=== PATIENT | female | born 1955 | race Caucasian/White ===

== ENCOUNTER 2019-05-07 08:07 | Outpatient (CLI) | payer MEDICARE, OTHER, SELFPAY ==
--- NOTE | 2019-05-07 09:09 | XR_ITS ---
WS: [id number] ABDOMEN KUB CLINICAL INFORMATION: Renal/ureteral calculi. COMPARISON: November 06, 2018 FINDINGS: Bowel gas partially obscures renal parenchyma. Lumbar scoliosis convex right. Pelvic phleboliths. No definite visualized staghorn calculus today. No visualized renal parenchymal or ureteral calculi. Mod erate spondylitic changes lumbar spine. XR/XR KUB [id number] Impression: No definite visualized renal or ureteral calculi today.
== END 2019-05-07 08:08 | disposition home or self-care (01) ==
LOC: RAD 08:13 → RADWPI 08:53
PROVIDERS: PCP Nurse Practitioner Family; Visit Provider Urology
DX: N20.0 Calculus of kidney (principal)
CPT/HCPCS: 74018; 81001

== ENCOUNTER 2019-11-19 14:13 | Outpatient (CLI) | payer MEDICARE, OTHER, SELFPAY ==
--- NOTE | 2019-11-19 14:25 | XRR_ITS ---
PROCEDURE INFORMATION: Exam: XR Abdomen, 1 View Exam date and time: 11/19/2019 2:54 PM Age: 64 years old Clinical indication: Condition or disease; Other: Stones TECHNIQUE: Imaging protocol: XR of the abdomen. Views: Frontal supine view of the abdomen. 1 View. COMPARISON: CR XR KUB [id number] 05/07/2019 9:14 AM FINDINGS: Gastrointestinal tract: Prominent stool, with paucity of intra-abdominal bowel gas. Intraperitoneal space: Incomplete visualization of the superior and lateral abdomen. Vasculature: Subcentimeter pelvic calcifications, the majority of which are presumably vascular in etiology. If urolithiasis is of clinical concern, CT may be of benefit for further evaluation. Bones/joints: Scoliosis and degenerative change. Other findings: Brassiere artifact. XR/XR KUB [id number] IMPRESSION: Subcentimeter pelvic calcifications, the majority of which are presumably vascular in etiology. If urolithiasis is of clinical concern, CT may be of benefit for further evaluation.
== END 2019-11-19 14:14 | disposition home or self-care (01) ==
LOC: RAD 14:18
PROVIDERS: PCP Nurse Practitioner Family; Visit Provider Nurse Practitioner Family
DX: N20.0 Calculus of kidney (principal)
CPT/HCPCS: 74018; 80053; 81001

== ENCOUNTER 2019-11-27 08:56 | Outpatient (CLI) | payer MEDICARE, OTHER, SELFPAY ==
--- NOTE | 2019-11-27 09:15 | XRR_ITS ---
PROCEDURE INFORMATION: Exam: XR Abdomen, 1 View Exam date and time: 11/27/2019 9:00 AM Age: 64 years old Clinical indication: Condition or disease; Kidney or ureter condition; Calculus (stone) in kidney; Prior surgery; Surgery type: Cysto; Additional info: Kidney stone TECHNIQUE: Imaging protocol: XR of the abdomen. Views: Frontal supine view of the abdomen. 1 View. COMPARISON: CR XR KUB [id number] 11/19/2019 2:48 PM FINDINGS: Gastrointestinal tract: Normal. No bowel dilation. Vasculature: Multiple stable calcifications are present in the lower pelvis consistent with multiple phleboliths. No calcifications are seen in the projection of the kidneys. Bones/joints: There is chronic DJD and moderate scoliosis in the lumbar spine. XR/XR KUB 54515 IMPRESSION: 1. No acute abnormality. 2. Small calcifications in the pelvis are most likely phleboliths. No definite renal calcifications are identified.
== END 2019-11-27 08:57 | disposition home or self-care (01) ==
LOC: RAD 08:58
PROVIDERS: PCP Nurse Practitioner Family; Visit Provider Nurse Practitioner Family
DX: N20.0 Calculus of kidney (principal)
CPT/HCPCS: 74018; 81003; 82365; 88300

== ENCOUNTER 2020-04-08 12:50 | Outpatient (CLI) | payer MEDICARE, SELFPAY ==
--- NOTE | 2020-04-08 12:56 | MM_ITS ---
WS: [id number] BILATERAL SCREENING DIGITAL MAMMOGRAM WITH CAD HISTORY: SCREENING COMPARISON: 08/18/2018 Bilateral CC and MLO views submitted. Computer aided detection analyzed. Breast composition: There are scattered areas of fibroglandular density. No suspicious masses, microc alcifications or architectural distortion. Scattered calcifications in each breast. MM/[place] [id number] IMPRESSION: BI-RADS: 2-Benign FOLLOW UP: 1 Year Follow-up
== END 2020-04-08 12:51 | disposition home or self-care (01) ==
LOC: RADSHAW 12:55
PROVIDERS: PCP Nurse Practitioner Family; Visit Provider Nurse Practitioner Family
DX: Z12.31 Encounter for screening mammogram for malignant neoplasm of breast (principal)
CPT/HCPCS: 77067

== ENCOUNTER → 2020-04-11 10:50 | Outpatient (BNVA) | payer MEDICARE, OTHER, SELFPAY | PROVIDERS: PCP Nurse Practitioner Family; Visit Provider Surgery | DX: Z12.11 Encounter for screening for malignant neoplasm of colon (principal) | CPT/HCPCS: 87635 ==

== ENCOUNTER 2020-04-16 06:38 | Day surgery (SDC) | payer MEDICARE, OTHER, SELFPAY ==
[2020-04-14 10:00] VITALS: BMI 37.3
[2020-04-16 06:52] VITALS: BP 126/75; PULSE 73; RESP 18; TEMP 36.6; O2SAT 97
--- NOTE | 2020-04-16 07:00 | ANES.PREANE2 ---
Pre-Anesthetic Assessment Pre-Anesthetic Assessment: Height/Weight: Height 1.68 m Weight 104.78 kg Temp Pulse Resp BP Pulse Ox 97.8 F 73 18 126/75 97 04/16/20 06:52 04/16/20 06:52 04/16/20 06:52 04/16/20 06:52 04/16/20 06:52 Preop Diagnosis: Screening colonoscopy Proposed Procedure: Operation Date: 04/16/20 07:30 Proposed Procedures p Colonoscopy 96286 Z12.11(Not Applicable) - Seth Winkler MD Last intake: Intake Last Liquid Date 04/15/20 Last Liquid Time 22:30 Last Solid Date 04/14/20 Last Solid Time 18:00 Social: Social History: No alcohol and No tobacco Exam: Pre-Anes Outpt Exam: alert, oriented x 3, clear to auscultation bilaterally and regular rate & rhythm Airway: Submandibular: WNL Cervical ROM: WNL MP: 3 Pulmonary: Pulmonary: None reported CV/HEM: CV/HEM: HTN : : None reported Comments: hx staghorn Hepatic: Hepatic: None reported GI: GI: None reported Metabolic: Metabolic: DM and Morbid obesity Musc/skel: Musc/skel: None reported PFSH Anesthesia PFSH: Medical History Acute cystitis without hematuria Mixed stress and urge urinary incontinence Staghorn calculus Urolithiasis Surgical History H/O tubal ligation History of removal of calculus of renal pelvis through percutaneous nephrostomy Family History Father Myocardial infarction acute Mother Dementia Social History Smoking and tobacco status: never smoked Alcohol intake: never Marital status: Current occupational status: retired History of recent travel: No Data Anesthesia Cardiac Studies: No Data to Display
[2020-04-16] MEDS: sodium chloride 0.9% 1,000 ML 30 ML IV (07:03)
[2020-04-16 07:06] LABS: Glucose Point of Care 109 mg/dL (70-110)
--- NOTE | 2020-04-16 07:10 | W.PM.OPSFHP ---
Same Day Surgery H&P Indication for Procedure/HPI DATE OF PROCEDURE: April 16, 2020 CHIEF COMPLAINT/INDICATIONFOR SURGICAL PROCEDURE: Screening colonoscopy PREOP DIAGNOSIS: Screening colonoscopy PLANNED PROCEDRUE: Operation Date: 04/16/20 07:30 Proposed Procedures p Colonoscopy 42058 Z12.11(Not Applicable) - Seth Winkler MD This is a pleasant 65 years old female patient presents to my practice for screening colonoscopy as she never had one before. Patient denies any weight loss or history of colon cancer. She reports some intermittent bleeding with history of hemorrhoids. ROS All systems have been reviewed negative except as per the above or per problem list. Medications/Allergies* Home Medications Medication Instructions Recorded Confirmed Type lisinopril 20 mg tablet 30 mg PO DAILY 05/07/19 04/14/20 History metformin 500 mg tablet 500 mg PO DAILY 05/07/19 04/14/20 History simvastatin 10 mg tablet 10 mg PO DAILY 05/07/19 04/14/20 History trazodone 50 mg tablet 50 mg PO DAILY 11/19/19 04/14/20 History Allergies/Adverse Reactions Allergy/AdvReac Type Severity Reaction Status Date / Time No Known Allergies Allergy Unverified 04/16/20 07:10 Current Medications: Generic Name Dose Route Start Last Admin Trade Name Freq PRN Reason Stop Dose Admin Sodium Chloride 1,000 mls @ 30 mls/hr 04/16/20 06:45 04/16/20 07:03 Sodium Chloride 0.9% IV 04/17/20 06:44 30 mls/hr .Q24H CAMELIA Administration Pertinent History/Comorbid Conditions* Medical History (Updated 11/19/19 @ 13:51 by Jen Arias APRN) Acute cystitis without hematuria Mixed stress and urge urinary incontinence Staghorn calculus Urolithiasis Surgical History (Updated 05/07/19 @ 09:54 by Jorge L Murphy MD) H/O tubal ligation History of removal of calculus of renal pelvis through percutaneous nephrostomy Family History (Updated 04/27/19 @ 14:57 by Malia Lyle LPN) Father Myocardial infarction acute Father Dementia Mother Social History Smoking and tobacco status: never smoked Alcohol intake: never Marital status: Current occupational status: retired History of recent travel: No Pertinent Exam Findings alert, oriented x 3, clear to auscultation bilaterally, regular rate & rhythm and procedure specific exam findings (Abdominal examination nontender nondistended soft, obese with a BMI of 37) Recommendations Surgery/Procedure today (Colonoscopy with possible biopsy) Other Plans: Plan of care; After thorough history and physical examination and reviewing the chart, plan to perform screening colonoscopy. I discussed with the patient in details the risks,benefits,alternatives and indications.The risk of aspiration, bleeding, soft tissue injury, perforation of the colon and other potential concomitant complications were explained to the patient in details,also the potential need for Laproscoy/Laparotomy to repair any related complications including but not limited to colectomy and or Closotomy.The patient understood this well and did agree to proceed. Rationale was carefully and clearly discussed with the patient.Appropriate informed consent have been reviewed and signed All questions have been answered and all concerns have been addressed to patient's satisfaction. Verbal and written Instructions were given to the patient for colonoscopy prep Coding Level of Care Code Acute Energy Control Officer for [place]
[2020-04-16 07:46] VITALS: BP 86/49; PULSE 61; RESP 20; TEMP 36.2; O2SAT 96
[2020-04-16 07:54] VITALS: BP 104/63; PULSE 62; RESP 18; TEMP 36.4; O2SAT 98
[2020-04-16 08:05] VITALS: BP 118/68; PULSE 66; RESP 18; TEMP 36.4; O2SAT 98
--- NOTE | 2020-04-16 14:30 | ANE.PACU2 ---
Inpatient post-anesthesia follow up: Airway intact: Yes Vital signs: Temperature 97.5 F Pulse Rate 66 Respiratory Rate 18 Blood Pressure 118/68 Pulse Oximetry 98 Oxygen Delivery Me thod Room Air Oxygen Flow Rate 3 Fraction of Inspir ed Oxygen Hydration adequate: Yes Nausea and vomiting: No Pain level: 1 Mental status: Baseline
== END 2020-04-16 08:15 | disposition home or self-care (01) ==
PROVIDERS: PCP Nurse Practitioner Family; Visit Provider Surgery
PROC: 0DJD8ZZ Inspection of Lower Intestinal Tract, Via Natural or Artificial Opening Endoscopic (ICD-10-PCS; CPT 45378; principal; 2020-04-16 07:30)
DX: Z12.11 Encounter for screening for malignant neoplasm of colon (principal); D12.5 Benign neoplasm of sigmoid colon; K57.30 Diverticulosis of large intestine without perforation or abscess without bleeding; I10 Essential (primary) hypertension; E11.9 Type 2 diabetes mellitus without complications; E66.01 Morbid (severe) obesity due to excess calories; Z68.37 Body mass index [BMI] 37.0-37.9, adult
CPT/HCPCS: 36416; 45385; 82962; 88305; 96360; J2704; J7030

== ENCOUNTER 2020-08-05 07:35 | Outpatient (CLI) | payer MEDICARE, SELFPAY ==
--- NOTE | 2020-08-05 07:30 | XRR_ITS ---
PROCEDURE INFORMATION: Exam: XR Abdomen Exam date and time: 08/05/2020 7:30 AM Age: 65 years old Clinical indication: Condition or disease; Kidney or ureter condition; Calculus (stone) in kidney; Prior surgery; Surgery type: Kidney stone; Additional info: Stone, kub at [facility] on 05/06/20 at 0715 with appt to follow at 0815. TECHNIQUE: Imaging protocol: XR of the abdomen. Views: Frontal supine view of the abdomen. 1 View. COMPARISON: CR XR KUB [id number] 11/27/2019 9:04 AM FINDINGS: Gastrointestinal tract: Bowel gas pattern is nonspecific. No mass effect upon the bowel loops. Distal rectal gas. Scattered loops of air filled small bowel none of which are dilated. Bones/joints: No acute process within the osseous structures of the spine or pelvis. Other findings: No appreciable calcifications XR/XR KUB [id number] IMPRESSION: Bowel gas pattern is nonspecific.
== END 2020-08-05 07:36 | disposition home or self-care (01) ==
PROVIDERS: PCP Nurse Practitioner Family; Visit Provider Urology
DX: N20.0 Calculus of kidney (principal)
CPT/HCPCS: 74018; 81003; 87077; 87086; 87184

== ENCOUNTER 2021-02-04 07:24 | Outpatient (CLI) | payer MEDICARE, SELFPAY ==
--- NOTE | 2021-02-04 07:15 | XR_ITS ---
WS: [id number] KUB, AP view, 02/04/2021 Clinical Data: UROLITH IAS Comparison: KUB, 08/05/2020. Findings: No abnormal intraabdominal masses or calcifications are seen. There is no dilatated small bowel or ev idence of obstruction. There is a dextroscoliosis with osteoarthritis of the lumbar spine. There is a large amount of fecal material throughout the colon. There are phleboliths in the true pelvis. XR/XR KUB 27712 Impression: Negative KUB.
== END 2021-02-04 07:25 | disposition home or self-care (01) ==
LOC: RAD 07:27
PROVIDERS: PCP Nurse Practitioner Family; Visit Provider Urology
DX: N20.0 Calculus of kidney (principal)
CPT/HCPCS: 74018; 81003; 87086

== ENCOUNTER → 2021-03-24 08:56 | Outpatient (BNVA) | payer MEDICARE, SELFPAY | PROVIDERS: PCP Nurse Practitioner Family; Visit Provider Urology | DX: N30.20 Other chronic cystitis without hematuria (principal) | CPT/HCPCS: 81003 ==

== ENCOUNTER → 2021-07-23 12:35 | Outpatient (BNVA) | payer MEDICARE, SELFPAY | PROVIDERS: PCP Nurse Practitioner Family; Visit Provider Urology | DX: N30.20 Other chronic cystitis without hematuria (principal); N39.46 Mixed incontinence; N20.0 Calculus of kidney | CPT/HCPCS: 51798; 81003; 99213 ==

== ENCOUNTER 2022-03-31 08:24 | Outpatient (CLI) | payer MEDICARE, SELFPAY ==
--- NOTE | 2022-03-31 08:34 | MM_ITS ---
WS: [id number] VIEWS: MLO and CC views both breasts. 3D digital tomosynthesis is also included in this exam. Comparison made with prior exam of 08/18/2018, 04/08/2020.. Findings: There was no sign of mass, architectural distortion or suspicious calcification in either breast. Sc attered fibroglandular densities MM/[place] [id number] Impression: BI-RADS: 2-Benign FOLLOW-UP: 1 Year Follow-up This mammogram was also analyzed by the Computer Aided Detection System R2 Imag e City Clerk.
== END 2022-03-31 08:25 | disposition home or self-care (01) ==
LOC: RAD 08:30
PROVIDERS: PCP Nurse Practitioner Family; Visit Provider Nurse Practitioner Family
DX: Z12.31 Encounter for screening mammogram for malignant neoplasm of breast (principal)
CPT/HCPCS: 77063; 77067

== ENCOUNTER 2022-10-13 13:46 | Outpatient (CLI) | payer MEDICARE, SELFPAY ==
--- NOTE | 2022-10-13 14:41 | XR_ITS ---
WS: [id number] Right ankle, 3 views, 10/13/2022 Clinical Data: RIGHT ANKLE PAIN Comparison: None. Findings: No fractures or dislocations are seen. The ankle mortise is normal. The talus and calcaneus are unrem arkable. No soft tissue swelling over the medial or lateral malleolus is seen. There is a plantar spur and an Achilles spur. Impression: Negative right ankle.
== END 2022-10-13 13:47 | disposition home or self-care (01) ==
LOC: RAD 14:30
PROVIDERS: PCP Nurse Practitioner Family; Visit Provider Nurse Practitioner Family
DX: M25.571 Pain in right ankle and joints of right foot (principal)
CPT/HCPCS: 73610

== ENCOUNTER 2022-11-26 11:51 | Inpatient (IN) | payer MEDICARE, SELFPAY ==
[2022-11-26] VITALS (9 sets, daily range): BP systolic 122–154; BP diastolic 81–110; PULSE 112–160; RESP 15–21; TEMP 36.6–37.1; O2SAT 96–98; BMI 38.7
--- NOTE | 2022-11-26 11:56 | ECG_ITS ---
[facility] Test Date: 2022-11-26 Pat Name: Alanna Rothman Department: Room: 106 Gender: Female International Student Counselor: : 1955 Requested By: Ney Douglass Order Number: [id number] Amaury MD: Lino Randall M.D. Measurements Intervals [place] Rate: 150 P: 0 NC: 0 QRS: 37 QRSD: 87 T: 49 QT: 271 QTc: 429 Interpretive Statements ATRIAL FIBRILLATION WITH RAPID VENTRICULAR RESPONSE ST DEPRESSION, CONSIDER SUBENDOCARDIAL INJURY [0.1+ mV ST DEPRESSION] No previous ECG available for comparison Electronically Signed On 11-26-2022 15:27:04 CDT by Lino Randall M.D. [id number]
--- NOTE | 2022-11-26 12:02 | XR_ITS ---
WS: [id number] Portable AP upright chest, 11/26/2022 Clinical Data: dyspnea/cough Comparison: None. Findings: No nodules, masses or effusions are seen. The heart is normal. The pulmonary vascularity is not increased. No pneumonia or pneumothorax is seen. The aortic arch shows mild tortuosity. There ar e monitor leads on the chest wall. Impression: Atherosclerosis.
--- NOTE | 2022-11-26 12:03 | ED_ITS ---
HPI - Arrhythmia/Palpitations General: Chief Complaint: Chest Pain Stated Complaint: chest pain, high bp, fast heartrate Time Seen by Provider: 11/26/22 11:59 Source: patient Mode of arrival: ambulatory History of Present Illness: 67-year-old female presents emergency room complaining of palpitation and racing heart rate. She was at physical therapy swelling and noted her heart rate was elevated she was directed to the emergency room on arrival here she is hypertensive with sustained A-fib with RVR on initial EKG. She has some mild chest discomfort earlier is mostly improved. Denies any radiation of pain into her extremities. MD complaint: rapid heart beat and heart racing Onset (ago): hour(s) Duration: constant Severity: moderate Context: occurred during rest Associated symptoms: Deny anxiety, cough, diaphoresis, muscle cramps, nausea, paresthesias, pre-syncope, sense of impending doom, short of breath, syncope or vomiting Review of Systems Const: Denies: fever(s), chills or diaphoresis Card: Reports: palpitations and irregular heart rhythm; Denies: chest pain, syncope or pre-syncope Resp: Denies: dyspnea GI: Denies: abdominal pain, nausea or vomiting : Denies: dysuria, urinary frequency or urinary urgency Musc: Denies: muscle cramps Skin/Breast: Denies: rash Psych: Denies: anxiety PFSH ED PFSH: Medical History Acute cystitis without hematuria Chronic cystitis Colon polyp Conjunctivitis Diabetes mellitus Diverticulosis HTN (hypertension) Hyperlipidemia Mixed stress and urge urinary incontinence Staghorn calculus URI with cough and congestion Urolithiasis Surgical History H/O tubal ligation History of removal of calculus of renal pelvis through percutaneous nephrostomy Family History Father , at age 52 Myocardial infarction acute Mother Dementia Social History Smoking and tobacco/nicotine status: never used tobacco/nicotine Alcohol intake: never Substance/Drug Use: never Marital status: / Current occupational status: retired Physical Exam Const: GENERAL APPEARANCE: cooperative and comfortable ORIENTATION/CONSCIOUSNESS: Yes awake, Yes oriented to person, Yes oriented to place and Yes oriented to time HENMT: COMMON NORMALS: normocephalic, atraumatic and hearing grossly normal bilaterally HEAD & SCALP: normocephalic and atraumatic Resp: COMMON NORMALS: normal respiratory effort, No retractions, No use of accessory muscles and clear to auscultation bilaterally AUSCULTATION: clear to auscultation bilaterally Cardio: COMMON NORMALS: No murmurs present (Cardio) RATE: tachycardic RHYTHM: abnormal rhythm irregularly irregular GI: COMMON NORMALS: Soft to palpation and No hepatosplenomegaly present AUSCULTATION: Yes normoactive bowel sounds PALPATION: Yes Soft to palpation, No Tenderness to palpation present (GI), No Guarding due to palpation present (GI) and Yes No hepatosplenomegaly present Extremity: COMMON NORMALS: normal to inspection, capillary refill normal, no clubbing, cyanosis or edema, no calf tenderness and no pedal edema Neuro: SENSORIUM/ORIENTATION: Yes oriented to person, Yes oriented to place a nd Yes oriented to time Skin: COMMON NORMALS: no rashes or lesions noted GENERAL SKIN EXAM: no rashes or lesions noted Course Vital Signs: Vital signs: Vital Signs Temperature 97.9 F 11/29/22 13:51 Pulse Rate 61 11/29/22 14:00 Respiratory Rate 15 11/29/22 13:51 Blood Pressure 155/66 11/29/22 13:51 Pulse Oximetry 96 11/29/22 13:51 Oxygen Delivery Me thod Room Air 11/29/22 11:21 MDM - Arrhythmia/Palpitations Medical Decision Making Initially started on Cardizem however patient did not respond she was switched to amiodarone and rate began to improve. She will be admitted to the hospital discussed with hospitalist. Dr. Alicia will see the patient orders written. Differential Diagnosis Likely palpitations, artial fibrillation and artial flutter Medical Records I reviewed the patient's medical records. Lab Data I reviewed the patient's lab results. 11/29/22 03:30 11/29/22 03:30 Laboratory Results WBC 4.98 10^3/uL (3.29-11.43) 11/26/22 12:08 RBC 4.69 10^6/uL (3.85-5.65) 11/26/22 12:08 Hgb 14.10 g/dL (11.27-16.99) 11/26/22 12:08 Hct 42.1 % (36-47) 11/26/22 12:08 MCV 89.8 fl (85-98) 11/26/22 12:08 MCH 30.1 pg (27-33) 11/26/22 12:08 MCHC 33.5 g/dL (30-55) 11/26/22 12:08 RDW 13.0 % (12.1-15.1) 11/26/22 12:08 Plt Count 237 10^3/cmm (157-399) 11/26/22 12:08 MPV 9.2 fL (7.4-10.4) 11/26/22 12:08 Neut % (Auto) 46.2 % 11/26/22 12:08 Lymph % (Auto) 33.7 % 11/26/22 12:08 [place] % (Auto) 13.1 % 11/26/22 12:08 Eos % (Auto) 5.4 % 11/26/22 12:08 Baso % (Auto) 1.2 % 11/26/22 12:08 Neut # (Auto) 2.30 10^3/uL (1.8-7.7) 11/26/22 12:08 Lymph # (Auto) 1.7 10^3/uL (0.8-4.8) 11/26/22 12:08 [place] # (Auto) 0.7 10^3/uL (0.2-0.9) 11/26/22 12:08 Eos # (Auto) 0.3 10^3/uL (0.0-0.8) 11/26/22 12:08 Baso # (Auto) 0.1 10^3/uL (0.0-0.1) 11/26/22 12:08 Nucleated RBC % (auto) 0 % 11/26/22 12:08 Nucleated RBCs # 0.0 /100WBC 11/26/22 12:08 D-Dimer 0.89 ug/mLFEU (0-0.59) H 11/26/22 12:08 Sodium 140 mmol/L (136-145) 11/26/22 12:08 Potassium 4.2 mmol/L (3.5-5.1) 11/26/22 12:08 Chloride 104 mmol/L (98-107) 11/26/22 12:08 Carbon Dioxide 24 mmol/L (22-29) 11/26/22 12:08 Anion Gap 16.2 (5-19) 11/26/22 12:08 BUN 21 mg/dL (8-23) 11/26/22 12:08 Creatinine 0.6 mg/dL (0.5-0.9) 11/26/22 12:08 GFR Calculation 99.1 mL/min (90-130) 11/26/22 12:08 Glucose 133 mg/dL (65-115) H 11/26/22 12:08 Calculated Osmolality 295 mOsm/kg (285-295) 11/26/22 12:08 Calcium 9.6 mg/dL (8.5-10.5) 11/26/22 12:08 Magnesium 2.1 mg/dL (1.7-2.3) 11/26/22 12:08 Total Bilirubin 0.5 mg/dL (0.15-1.2) 11/26/22 12:08 AST 15 U/L (0-32) 11/26/22 12:08 ALT 13 U/L (0-33) 11/26/22 12:08 Alkaline Phosphatase 72 U/L (35-105) 11/26/22 12:08 Troponin T Baseline 36 ng/L (0-10) H 11/26/22 12:08 NT-Pro-B Natriuret Pep 436 pg/mL (0-125) H 11/26/22 12:08 Total Protein 7.7 g/dL (6.6-8.7) 11/26/22 12:08 Albumin 4.4 g/dL (3.5-5.2) 11/26/22 12:08 Globulin 3.3 g/dL (1.3-4.6) 11/26/22 12:08 TSH 4.85 uIU/mL (0.27-4.20) H 11/26/22 12:08 TSH Cancelled 11/26/22 12:08 All radiology interpretation(s) finalized by discharge Critical Care Time Critical Care Time: Critical Care Time: Yes Total Critical Care Time: 40 Attestation: The high probability of a clinically significant, sudden or life threatening deterioration of the patient's cardiovascular system(s) required my full and direct attention, intervention and personal management. The critical care time is as shown. This time is in addition to time spent performing any reported procedures but includes the following: [x] Data and vital sign review and interpretation [x] Patient assessment, examination and intervention [x] Documentation [x] Medication orders and management Discharge Plan Discharge Patient Disposition: Admitted As Inpatient Admit Provider: Jessie Alicia Clinical Impression: Atrial fibrillation with rapid ventricular response, HTN (hypertension), Diabetes mellitus Condition: Stable Coding Level of Care Code ED Lawn Technician for [place]
[2022-11-26] MEDS: dilTIAZem 5 mg/mL SDV 5 mL 20 MG IVP (12:13)
[2022-11-26] MEDS: dilTIAZem 100 MG in sodium chloride 0.9% (add-van) 100 ML IV (12:14)
[2022-11-26 12:18] LABS: Basophils # 0.1 10^3/uL (0.0-0.1); Basophils % 1.2 %; Eosinophils # 0.3 10^3/uL (0.0-0.8); Eosinophils % 5.4 %; Hematocrit 42.1 % (36-47); Lymphocytes # 1.7 10^3/uL (0.8-4.8); Lymphocytes % 33.7 %; Mean Corpuscular HGB Conc 33.5 g/dL (30-55); Mean Corpuscular Hemoglobin 30.1 pg (27-33); Mean Corpuscular Volume 89.8 fl (85-98); Mean Platelet Volume 9.2 fL (7.4-10.4); Monocytes # 0.7 10^3/uL (0.2-0.9); Monocytes % 13.1 %; Neutrophils % 46.2 %; Nucleated Red Blood Cells % 0 %; Platelet Count 237 10^3/cmm (157-399); Red Blood Count 4.69 10^6/uL (3.85-5.65); White Blood Count 4.98 10^3/uL (3.29-11.43)
[2022-11-26 12:38] LABS: Alanine Aminotransferase 13 U/L (0-33); Albumin Level 4.4 g/dL (3.5-5.2); Alkaline Phosphatase 72 U/L (35-105); Anion Gap 16.2 (5-19); Aspartate Amino Transferase 15 U/L (0-32); Blood Urea Nitrogen 21 mg/dL (8-23); Calcium 9.6 mg/dL (8.5-10.5); Carbon Dioxide 24 mmol/L (22-29); Chloride 104 mmol/L (98-107); Globulin 3.3 g/dL (1.3-4.6); Glomerular Filtration Rate 99.1 mL/min (90-130); Glucose 133 mg/dL (65-115); Osmolality Calculated 295 mOsm/kg (285-295); Potassium 4.2 mmol/L (3.5-5.1); Sodium 140 mmol/L (136-145); Total Bilirubin 0.5 mg/dL (0.15-1.2); Total Protein 7.7 g/dL (6.6-8.7)
--- NOTE | 2022-11-26 13:47 | ECG_ITS ---
[facility] Test Date: 2022-11-26 Pat Name: Alanna Rothman Department: Room: Gender: Female District Ranger: : 1955 Requested By: Ney Douglass Order Number: [id number] Amaury MD: Lino Randall M.D. Measurements Intervals [place] Rate: 127 P: 0 GA: 0 QRS: 46 QRSD: 95 T: 51 QT: 290 QTc: 423 Interpretive Statements ATRIAL FIBRILLATION WITH RAPID VENTRICULAR RESPONSE INCOMPLETE RIGHT BUNDLE BRANCH BLOCK [90+ ms QRS DURATION, TERMINAL R IN V1/V2, 40+ ms S IN I/aVL/V4/V5/V6] ABNORMAL RHYTHM ECG No previous ECG available for comparison Electronically Signed On 11-26-2022 14:49:29 CDT by Lino Randall M.D. [id number]
[2022-11-26 14:37] LABS: Troponin(5th) Baseline 36 ng/L (0-10)
[2022-11-26 14:39] LABS: Troponin 5 2HR 39.37 ng/L (0-10); Troponin 5 2HR Delta 3.37 ABS# (0-10)
--- NOTE | 2022-11-26 15:54 | P.HP_ITS ---
Providers/Chief Complaint Admitting Physician: Jessie Alicia MD Primary Care Provider: Monika Tafoya Chief Complaint: chest pain, high bp, fast heartrate History of Present Illness Alanna Rothman is a 67 year old female with a past medical history of hypertension, diabetes mellitus who presents to the emergency room today with chief complaints of chest pain palpitations. At home she noted her blood pressure to be initially elevated between 150 to 190 mmHg and heart rate sustaining in the 150s which brought her to the emergency room. Here she was noted to have new onset A-fib with RVR with heart rate in the 1 30- 1 50. It did not respond to starting Cardizem infusion. She was thereafter switched to amiodarone infusion which she is continuing now. She does not appear to have received bolus dose so far. No past history of known atrial fibrillation. Denies past history of similar symptoms. She had URI-like symptoms approximately 1 week ago. She was taking some oral decongestants but has not used any in the last 4 to 5 days. Drinks 1 cup of coffee a day. Non-smoker. Review of Systems General: Reports: 10 or more systems reviewed and unremarkable except in HPI and below Const: Denies: fever(s), chills or body aches Eyes: Denies: change in vision, blurry vision or photophobia ENMT: Reports: hoarseness; Denies: throat pain, enlarged tonsils, odynophagia or nasal congestion Card: Denies: chest pain, palpitations, irregular heart rhythm, edema, swelling of feet/ankles, lightheadedness, pre-syncope, dyspnea on exertion or orthopnea Resp: Denies: dyspnea, productive cough, non-productive cough, wheezing, stridor, pain on inspiration, change in phlegm color, hemoptysis or chest congestion GI: Denies: abdominal pain, nausea, vomiting, hematemesis, coffee ground emesis, dysphagia, heartburn, diarrhea, constipation, GI cramping, change in stool character, hematochezia or melena : Denies: flank pain, difficulty voiding, dysuria, urinary frequency, u rinary urgency, urinary hesitancy or hematuria Musc: Denies: neck pain, back pain, extremity pain, joint swelling, joint warmth or deformity Neuro: Denies: headache(s), numbness in extremities, weakness in extremities, sensory changes, difficulty walking, frequent falls, dizziness, vertigo, behavioral changes, Slurred speech present or seizure-like activity Psych: Denies: anxiety, depression, suicidal ideation or homicidal ideation Endo: Denies: polyuria, polydipsia, tired all the time, cold intolerance or hot flashes Rubén/Lymph: Denies: easy bruising or easy bleeding Medications/Allergies Home Medications Medication Instructions Recorded Confirmed Last Taken Type metformin 500 mg tablet 500 mg PO BEDTIME 05/07/19 11/26/22 11/25/22 History simvastatin 10 mg tablet 10 mg PO BEDTIME 05/07/19 11/26/22 11/25/22 History trazodone 50 mg tablet 50 mg PO BEDTIME 11/19/19 11/26/22 11/25/22 History diphenhydramine HCl 25 mg capsule 25 mg PO BEDTIME 11/26/22 11/26/22 11/25/22 History (Benadryl) ibuprofen 200 mg tablet 600 mg PO BID 11/26/22 11/26/22 11/26/22 History lisinopril 30 mg tablet 30 mg PO BEDTIME 11/26/22 11/26/22 11/25/22 History Allergies Allergy/AdvReac Type Severity Reaction Status Date / Time aspirin Allergy ADR-Nausea Verified 11/26/22 13:08 PFSH Acute PFSH: Medical History Acute cystitis without hematuria Chronic cystitis Colon polyp Conjunctivitis Diverticulosis Mixed stress and urge urinary incontinence Staghorn calculus URI with cough and congestion Urolithiasis Surgical History H/O tubal ligation History of removal of calculus of renal pelvis through percutaneous nephrostomy Family History Father , at age 52 Myocardial infarction acute Mother Dementia Social History Smoking and tobacco/nicotine status: never used tobacco/nicotine Alcohol intake: never Substance/Drug Use: never Marital status: / Current occupational status: retired Vitals/I&O/Wt Last Vital Signs Temp 98.2 F 11/26/22 12:02 Pulse 130 H 11/26/22 15:42 Resp 16 11/26/22 13:30 BP 139/91 11/26/22 13:30 Pulse Ox 96 11/26/22 13:30 O2 Del Method Room Air 11/26/22 15:19 11/26/22 11/26/22 11/26/22 06:59 14:59 22:59 Intake Total 17.875 / 17.875 Balance 17.875 / 17.875 Weight last 48 hrs Weight 108.862 kg Physical Exam Narrative: General: No acute distress, AO x3 HEENT: PERRLA, pupils bilaterally equal and reactive, pallors not present Chest: Normal vesicular breath sounds, no added sounds, equal good air entry bilaterally CVS: S1-S2 regular, no murmurs, no tachycardia, no gallops, no rubs Abdomen: Soft, nontender, no organomegaly, bowel sounds present Neuro: No focal deficits, no facial deformity, AO x3, power 5/5 in all limbs Data 11/26/22 12:08 11/26/22 12:08 Other data: Chest x-ray without consolidation A&P Assessment and plan (1) Atrial fibrillation with RVR: New onset atrial fibrillation with RVR. Heart rate ranging between 1 30-1 50 for which she was converted from Cardizem infusion to amiodarone infusion Continue amiodarone infusion, complete 150 mg bolus over 15 minutes This appears to be a first episode. Complains of chest pain at the time of palpitations which is currently improved. Baseline troponin of 36, 2 hours at 39 without significant delta at 2 hours. Pending 6-hour trend. Check D-dimer to evaluate for possible PE given chest pain and new A-fib. If positive will proceed with CTA of the chest Check COVID PCR as recent URI may have precipitated current A-fib episode. Check TSH Echocardiogram May need to be started on anticoagulation additionally, to be discussed with patient Attestations Medical Necessity Statement*: Anticipate greater than 2 midnight admission for evaluation of new onset A-fib with RVR, control of heart rate, complete ischemic work-up and possibly initiate anticoagulation Coding Level of Care Code Acute Code for Chg Fwd High MDM includes number and complexity of problems actively addressed during encounter, amount and/or complexity of data reviewed/ordered and described risk of complication, morbidity or mortality of management as documented Diagnoses Atrial fibrillation with RVR I48.91
[2022-11-26 16:36] LABS: D Dimer 0.89 ug/mLFEU (0-0.59)
[2022-11-26] MEDS: enoxaparin 40 mg/0.4 mL Syringe SUBCUT (16:44)
[2022-11-26 17:01] LABS: Magnesium 2.1 mg/dL (1.7-2.3); NT Pro B Type Natriuretic Pept 436 pg/mL (0-125); Thyroid Stimulating Hormone 4.85 uIU/mL (0.27-4.20)
[2022-11-26 17:59] LABS: Troponin 5 6HR 44.54 ng/L (0-10)
[2022-11-26 18:04] LABS: Troponin 5 6HR Delta 8.54 ng/L (0-12)
[2022-11-26 19:41] LABS: Adenovirus Not Detected (NOT DETECT); Chlamydia Pneumoniae Not Detected (NOT DETECT); Coronavirus 229E,HKU1,NL63,OC4 Not Detected (NOT DETECT); Human Metapneumovirus Not Detected (NOT DETECT); Human Rhinovirus/Enterovirus Detected (NOT DETECT); Influenza A Not Detected (NOT DETECT); Influenza A H1 Not Detected (NOT DETECT); Influenza A H1-2009 Not Detected (NOT DETECT); Influenza A H3 Not Detected (NOT DETECT); Influenza B Not Detected (NOT DETECT); Mycoplasma Pneumoniae Not Detected (NOT DETECT); Parainfluenza Virus Type 1 Not Detected (NOT DETECT); Parainfluenza Virus Type 2 Not Detected (NOT DETECT); Parainfluenza Virus Type 3 Not Detected (NOT DETECT); Parainfluenza Virus Type 4 Not Detected (NOT DETECT); Respiratory Syncytial Virus A Not Detected (NOT DETECT); Respiratory Syncytial Virus B Not Detected (NOT DETECT); SARS-COV-2 Not Detected (NOT DETECT)
[2022-11-26] MEDS: metformin 500 mg Tablet PO (21:21)
[2022-11-26] MEDS: atorvastatin 40 mg Tablet 20 MG PO (21:21)
[2022-11-26] MEDS: lisinopril 20 mg Tablet 30 MG PO (21:22)
[2022-11-26] MEDS: trazodone 50 mg Tablet PO (21:22)
--- NOTE | 2022-11-26 21:26 | ECG_ITS ---
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 Measurements Intervals [place] Rate: 126 P: 0 [place]: 0 QRS: 61 QRSD: 98 T: 57 QT: 332 QTc: 482 Interpretive Statements ATRIAL FLUTTER WITH RAPID VENTRICULAR RESPONSE Compared to ECG 11/26/2022 13:50:04 ST (T wave) deviation now present Atrial fibrillation no longer present Incomplete right bundle-branch block no longer present Electronically Signed On 11-26-2022 23:09:41 CDT by Lino Randall M.D. [id number]
[2022-11-27] VITALS (9 sets, daily range): BP systolic 112–134; BP diastolic 64–94; PULSE 124–140; RESP 18–26; TEMP 36.6–37.2; O2SAT 92–96
[2022-11-27 02:29] LABS: Basophils # 0.1 10^3/uL (0.0-0.1); Basophils % 0.8 %; Eosinophils # 0.3 10^3/uL (0.0-0.8); Eosinophils % 3.8 %; Hematocrit 44.2 % (36-47); Lymphocytes # 2.3 10^3/uL (0.8-4.8); Lymphocytes % 29.5 %; Mean Corpuscular HGB Conc 32.8 g/dL (30-55); Mean Corpuscular Hemoglobin 29.9 pg (27-33); Mean Corpuscular Volume 91.1 fl (85-98); Mean Platelet Volume 9.4 fL (7.4-10.4); Monocytes # 0.9 10^3/uL (0.2-0.9); Monocytes % 11.2 %; Neutrophils # 4.27 10^3/uL (1.8-7.7); Neutrophils % 54.3 %; Nucleated Red Blood Cells % 0 %; Platelet Count 244 10^3/cmm (157-399); Red Blood Count 4.85 10^6/uL (3.85-5.65); Red Cell Distribution Width 12.8 % (12.1-15.1); White Blood Count 7.86 10^3/uL (3.29-11.43)
[2022-11-27 02:57] LABS: Alanine Aminotransferase 14 U/L (0-33); Alkaline Phosphatase 71 U/L (35-105); Anion Gap 14.2 (5-19); Aspartate Amino Transferase 17 U/L (0-32); Blood Urea Nitrogen 20 mg/dL (8-23); Calcium 9.3 mg/dL (8.5-10.5); Carbon Dioxide 24 mmol/L (22-29); Chloride 103 mmol/L (98-107); Globulin 3.3 g/dL (1.3-4.6); Glomerular Filtration Rate 71.1 mL/min (90-130); Glucose 121 mg/dL (65-115); Osmolality Calculated 288 mOsm/kg (285-295); Potassium 4.2 mmol/L (3.5-5.1); Sodium 137 mmol/L (136-145); Total Bilirubin 0.5 mg/dL (0.15-1.2); Total Protein 7.3 g/dL (6.6-8.7)
[2022-11-27] MEDS: metoprolol tartrate 1 mg/1 mL SDV 5 mL 5 MG IVP (03:09)
--- NOTE | 2022-11-27 03:54 | PC.NURSE ---
notified Dr Ramirez of HR in 130's on amio gtt, received order for 5 mg metoprolol IV X1
[2022-11-27] MEDS: pantoprazole DR 40 mg Tablet PO (08:51)
[2022-11-27] MEDS: metoprolol tartrate 25 mg Tablet PO ×3 (11:45→23:21)
[2022-11-27 12:48] LABS: Free T4 Free Thyroxine 0.97 ng/dL (0.82-1.77); T3 Free 2.9 PG/ML (2.0-4.4)
[2022-11-27] MEDS: enoxaparin 100 mg/mL Syringe SUBCUT (13:54)
--- NOTE | 2022-11-27 14:04 | PM.PN ---
Subjective Subjective: HR continues to be 120-140, denies any chest pain or palpitations currently , received 5 mg iv metoprolol overnight Medications: Reviewed: Yes Vitals/I&O/Wt Last Vital Signs Temp 98.1 F 11/27/22 11:27 Pulse 140 H 11/27/22 11:27 Resp 24 H 11/27/22 11:27 BP 112/64 11/27/22 11:27 Pulse Ox 96 11/27/22 11:27 O2 Del Method Room Air 11/27/22 11:27 11/26/22 11/27/22 11/27/22 22:59 06:59 14:59 Intake Total 652.448 / 670.323 480 / 480 Balance 652.448 / 670.323 480 / 480 Weight last 48 hrs Weight 108.862 kg Physical Exam Narrative: General: No acute distress, AO x3 HEENT: PERRLA, pupils bilaterally equal and reactive, pallors not present Chest: Normal vesicular breath sounds, no added sounds, equal good air entry bilaterally CVS: S1-S2 regular, no murmurs, no tachycardia, no gallops, no rubs Abdomen: Soft, nontender, no organomegaly, bowel sounds present Neuro: No focal deficits, no facial deformity, AO x3, power 5/5 in all limbs Data 11/27/22 01:50 11/27/22 01:50 A&P Assessment and plan (1) Atrial fibrillation with RVR: New onset atrial fibrillation with RVR. initially on cardizem infusion which did not help, transitioned to amiodarone Heart rate continues to be 120-140 while on amiodarone infusion Start metoprolol 25mg po q12h Baseline troponin of 36--> 39 ---> 44 D-dimer 0.89, appears to be age appropriate mildly elevated TSH but normal FT3 and FT4 Echocardiogram unable to be taken due to elevated HR [id number] score 4 , start lovenox 1mg/kg s/c q12h with transition to DOAC at discharge Cardiology consulted for persistent A fib ---> recommend to increase metorpolol to 25mg po q6h, additional digoxin if HR does not respond with this intervention Attestations Medical Necessity Statement*: continued admission for persisting A fib with RVR Coding Level of Care Code Acute Code for Chg Fwd Diagnoses Atrial fibrillation with RVR I48.91
[2022-11-27] MEDS: digoxin 250 mcg/ml INJ 2 mL 500 MCG IVP (18:54)
--- NOTE | 2022-11-27 19:30 | PC.NURSE ---
HR continues in 130s, amio gtt continued past [address] Ramirez
[2022-11-27] MEDS: trazodone 50 mg Tablet PO (19:58)
[2022-11-27] MEDS: metformin 500 mg Tablet PO (19:58)
[2022-11-27] MEDS: lisinopril 20 mg Tablet 30 MG PO (19:59)
[2022-11-27] MEDS: atorvastatin 40 mg Tablet 20 MG PO (19:59)
[2022-11-27] MEDS: ondansetron 2 mg/ML SDV 2 mL 4 MG IVP (23:42)
[2022-11-28] VITALS (12 sets, daily range): BP systolic 104–132; BP diastolic 51–89; PULSE 60–129; RESP 14–25; TEMP 36.4–36.8; O2SAT 95–98
[2022-11-28] MEDS: enoxaparin 100 mg/mL Syringe SUBCUT (01:08)
[2022-11-28 05:48] LABS: Basophils % 0.5 %; Eosinophils # 0.1 10^3/uL (0.0-0.8); Eosinophils % 1.1 %; Hematocrit 46.6 % (36-47); Lymphocytes # 2.2 10^3/uL (0.8-4.8); Lymphocytes % 26.8 %; Mean Corpuscular Hemoglobin 29.9 pg (27-33); Mean Corpuscular Volume 90.5 fl (85-98); Mean Platelet Volume 9.5 fL (7.4-10.4); Monocytes # 0.9 10^3/uL (0.2-0.9); Monocytes % 11.2 %; Neutrophils # 4.93 10^3/uL (1.8-7.7); Neutrophils % 60.2 %; Nucleated Red Blood Cells % 0 %; Platelet Count 279 10^3/cmm (157-399); Red Blood Count 5.15 10^6/uL (3.85-5.65); Red Cell Distribution Width 12.8 % (12.1-15.1)
[2022-11-28] MEDS: metoprolol tartrate 25 mg Tablet PO ×2 (05:53→20:43)
[2022-11-28 06:17] LABS: Alanine Aminotransferase 12 U/L (0-33); Albumin Level 4.1 g/dL (3.5-5.2); Alkaline Phosphatase 57 U/L (35-105); Anion Gap 13.5 (5-19); Aspartate Amino Transferase 13 U/L (0-32); Blood Urea Nitrogen 20 mg/dL (8-23); Calcium 9.6 mg/dL (8.5-10.5); Carbon Dioxide 27 mmol/L (22-29); Chloride 100 mmol/L (98-107); Globulin 3.5 g/dL (1.3-4.6); Glomerular Filtration Rate 71.1 mL/min (90-130); Glucose 126 mg/dL (65-115); Osmolality Calculated 286 mOsm/kg (285-295); Potassium 4.5 mmol/L (3.5-5.1); Sodium 136 mmol/L (136-145); Total Bilirubin 0.6 mg/dL (0.15-1.2); Total Protein 7.6 g/dL (6.6-8.7)
--- NOTE | 2022-11-28 06:37 | P.CONIM_ITS ---
Providers/Reason For Consult Consulting Physician/Specialty*: Dr. Baer, Cardiology Reason for Consult*: Tyler. fib with RVR Attending Physician: Jessie Alicia MD Primary Care Provider: Monika Tafoya History of Present Illness History of Present Illness Alanna Rothman is a 67 year old female with?past medical history of hypertension, diabetes mellitus,HLD who presented to the emergency room with chief complaints of chest pain and palpitations.? At home she noted her blood pressure to be elevated between 150 to 190 mmHg systolically and heart rate sustaining in the 150s. This has been going on since last Tuesday. In ER she was noted to have new onset A-fibrillation with RVR with heart rate in the 1 30-1 50. She was started on cardizem gtt followed by amiodarone gtt. HR remains in 120's. She was started on PO metoprolol. On reviewing the EKG' sand telemetry; rhythm seems to be typical atrial flutter with rapid ventricular response. Heart rate has been difficult to control. Telemetry showed heart rate to be in 120s to 130s in spite of amiodarone me toprolol and digoxin. Review of Systems Const: Denies: fever(s), chills, change in appetite, change in weight, fatigue or malaise Eyes: Denies: change in vision or eye discharge ENMT: Reports: throat pain and odynophagia; Denies: swelling of lips/tongue, oral sores, bleeding gums, nasal congestion, epistaxis or post nasal drip Card: Reports: chest pain, palpitations and irregular heart rhythm; Denies: edema, lightheadedness, syncope, dyspnea on exertion, orthopnea or leg pain with exertion Resp: Denies: dyspnea, productive cough, wheezing or hemoptysis GI: Denies: abdominal pain, nausea, vomiting, hematemesis, heartburn, diarrhea, constipation, change in bowel habits, hematochezia or melena : Denies: difficulty voiding, dysuria, oliguria or hematuria Musc: Denies: back pain, extremity swelling, joint pain or muscle weakness Skin/Breast: Denies: rash, erythema, new lesions or change in hair Neuro: Denies: numbness in extremities, weakness in extremities, lack of coordination, difficulty walking, dizziness, vertigo or confusion Psych: Denies: anxiety, depression, irritability, suicidal ideation or ho micidal ideation Endo: Denies: tired all the time, cold intolerance or heat intolerance Rubén/Lymph: Denies: easy bruising, easy bleeding, petechiae or purpura All/Imm: Denies: throat swelling, tongue swelling or acute wheezing Medications/Allergies Home Medications Medication Instructions Recorded Confirmed Last Taken Type metformin 500 mg tablet 500 mg PO BEDTIME 05/07/19 11/26/22 11/25/22 History simvastatin 10 mg tablet 10 mg PO BEDTIME 05/07/19 11/26/22 11/25/22 History trazodone 50 mg tablet 50 mg PO BEDTIME 11/19/19 11/26/22 11/25/22 History diphenhydramine HCl 25 mg capsule 25 mg PO BEDTIME 11/26/22 11/26/22 11/25/22 History (Benadryl) ibuprofen 200 mg tablet 600 mg PO BID 11/26/22 11/26/22 11/26/22 History lisinopril 30 mg tablet 30 mg PO BEDTIME 11/26/22 11/26/22 11/25/22 History Allergies Allergy/AdvReac Type Severity Reaction Status Date / Time aspirin Allergy ADR-Nausea Verified 11/26/22 13:08 Current Medications Generic Name Dose Route Start Last Admin Trade Name Freq PRN Reason Stop Dose Admin Atorvastatin Calcium 20 mg 11/26/22 21:30 11/27/22 19:59 Atorvastatin 40 Mg Tablet PO 20 mg BEDTIME CAMELIA Administration Enoxaparin Sodium 100 mg 11/27/22 13:30 11/28/22 01:08 Enoxaparin 100 Mg/Ml Syringe SUBCUT 100 mg Q12H CAMELIA Administration Amiodarone HCl 900 mg/ 518 mls @ 0 mls/hr 11/26/22 14:00 11/27/22 19:56 Dextrose/ IV Miscellaneous IV 0.5 mg/min Supplies .Q0M CAMELIA 17.27 mls/hr Administration Protocol Per Protocol Lisinopril 30 mg 11/26/22 21:30 11/27/22 19:59 Lisinopril 20 Mg Tablet PO 30 mg BEDTIME CAMELIA Administration Metformin HCl 500 mg 11/26/22 21:15 11/27/22 19:58 Metformin 500 Mg Tablet PO 500 mg BEDTIME CAMELIA Administration Metoprolol Tartrate 25 mg 11/27/22 17:45 11/28/22 05:53 Metoprolol Tartrate 25 Mg Tablet PO 25 mg Q6H CAMELIA Administration Ondansetron HCl 4 mg 11/26/22 14:34 11/27/22 23:42 Ondansetron 2 Mg/Ml Sdv 2 Ml IVP 4 mg Q6H PRN Administration NAUSEA AND VOMITING Pantoprazole Sodium 40 mg 11/27/22 09:00 11/27/22 08:[address] 40 Mg Tablet PO 40 mg DAILY CAMELIA Administration Trazodone HCl 50 mg 11/26/22 21:15 11/27/22 19:58 Trazodone 50 Mg Tablet PO 50 mg BEDTIME CAMELIA Administration PFSH Acute PFSH: Medical History (Updated 11/28/22 @ 09:47 by Makayla Baer MD) Acute cystitis without hematuria Chronic cystitis Colon polyp Conjunctivitis Diabetes mellitus Diverticulosis HTN (hypertension) Hyperlipidemia Mixed stress and urge urinary incontinence Staghorn calculus URI with cough and congestion Urolithiasis Surgical History H/O tubal ligation History of removal of calculus of renal pelvis through percutaneous nephrostomy Family History Father , at age 52 Myocardial infarction acute Mother Dementia Social History Smoking and tobacco/nicotine status: never used tobacco/nicotine Alcohol intake: never Substance/Drug Use: never Marital status: / Current occupational status: retired Vitals/I&O/Wt Last Vital Signs Temp 97.9 F 11/28/22 04:00 Pulse 129 H 11/28/22 05:25 Resp 25 H 11/28/22 04:00 BP 132/84 11/28/22 04:00 Pulse Ox 95 11/28/22 04:00 O2 Del Method Room Air 11/28/22 04:00 11/27/22 11/27/22 11/28/22 14:59 22:59 06:59 Intake Total 770.677 / 770.677 120 / 890.677 420 / 1310.677 Balance 770.677 / 770.677 120 / 890.677 420 / 1310.677 Weight last 48 hrs Weight 240 lb Physical Exam Const: COMMON NORMALS: no acute distress, patient oriented x3 and alert GENERAL APPEARANCE: cooperative, comfortable, well kempt and well hydrated HENMT: COMMON NORMALS: hearing grossly normal bilaterally, external ears normal and moist oral mucous membranes FACE & SINUS: normal facial exam EXTERNAL EAR: Yes external ears normal MOUTH: lip normal Eye: COMMON NORMALS: EOMs intact bilaterally and no scleral icterus GENERAL EYE: appearance normal, both eyes and all related structures ALIGNMENT: Yes alignment normal Neck/C-Spine: COMMON NORMALS: supple and no JVD GENERAL: Yes normal visual inspection and Yes trachea midline CAROTIDS: Yes normal carotid upstroke Lymph: LYMPHATIC: no lymphadenopathy noted Chest: COMMONS NORMALS: normal inspection of the chest and normal palpation of entire chest wall CHEST: Yes Symmetrical chest wall rise and No tenderness Resp: COMMON NORMALS: clear to auscultation bilaterally EFFORT & INSPECTION: Yes able to speak in complete sentences, No tachypneic, No respiratory distress, No pursed lip breathing, No labored and No Actively coughing AUSCULTATION: clear to auscultation bilaterally, no crackles, no rales, no rhonchi and no wheezes Cardio: COMMON NORMALS: no JVD, regular rate, regular rhythm, S1 normal heart sound present, S2 normal heart sound present and Peripheral pulses 2+ throughout PALPATION: normal PMI RATE: regular rate RHYTHM: regular rhythm HEART SOUNDS: S1 normal heart sound present, S2 normal heart sound present, no click, no gallops and no murmurs BRUITS: no carotid bruits PERIPHERAL PULSES: Peripheral pulses 2+ throughout, radial pulses present, posterior tibial pulses present and dorsalis pedis present GI: COMMON NORMALS: Soft to palpation AUSCULTATION: Yes normoactive bowel sounds PALPATION: Yes Soft to palpation, No Tenderness to palpation present (GI), No Guarding due to palpation present (GI) and No Rigid due to palpation Extremity: GENERAL: No cyanosis, No edema and No pallor Neuro: COMMON NORMALS: patient oriented x3, CN's II-XII intact bilaterally and no focal motor deficits SENSORIUM/ORIENTATION: Yes alert Psych: COMMON NORMALS: Normal thought process present and speech normal APPEARANCE: Yes well kempt SPEECH: Yes normal speech MOOD & AFFECT: Yes euthymic mood THOUGHT PROCESS: Normal thought process present THOUGHT CONTENT: Yes Normal thought content present Data 11/28/22 04:47 11/28/22 04:47 A&P Assessment and plan (1) Atrial flutter with rapid ventricular response: We will plan for SAMIRA and cardioversion. Risks and benefits were discussed with the patients. Risk of need for pacemaker and small risk of stroke was discussed. As well as 1 in 10,000 risk of having esophageal perforation with transesophageal echocardiogram. Patient expresses her understanding all her questions were answered and plan is to proceed with the procedure this morning. Patient tolerated the procedure well and converted to sinus bradycardia. Blood pressure soft post cardioversion. [id number]= 3 on 9, 1 for hypertension, 1 for diabetes and 1 for female sex Will start on Eliquis 5 mg p.o. twice daily. Decrease metoprolol tartrate to 25 mg every 12. Discontinue digoxin. (2) HTN (hypertension): (3) Diabetes mellitus: (4) Hyperlipidemia: Consult Attestations Time Spent in Patient Care: Greater than 35 minutes Procedures Time out/Consent Time Out Performed: Yes Consent for Procedure: Consent obtained from patient, Risks & Benefits reviewed and Agrees to proceed with procedure Procedure Narrative SAMIRA Procedure note Indication: Symptomatic difficult to rate control atrial flutter Sedation: Propofol by anesthesia Procedure was explained to the patient in detail and informed consent was obtained. Timeout was called. After achieving adequate sedation, the probe was inserted on first attempt. No blood on the probe post procedure. Prelim report: Normal left ventricle size and systolic function. No left atrial or left atrial appendage mass or thrombus visualized. No ASD or PFO identified. Full report to follow. Cardioversion procedure note. Anticoagulation: Lovenox subcu. Sedation: Propofol by anesthesia After ensuring no left atrial/left atrial appendage thrombus pads were placed anteroposteriorly. She received 120 J of synchronized biphasic shock ?1 with congregational of normal sinus rhythm. Patient tolerated the procedure well. Recovery: In unit Coding Level of Care Code 08628 Diagnoses Atrial flutter with rapid ventricular response I48.92 HTN (hypertension) I10 Diabetes mellitus E11.9 Hyperlipidemia E78.5
--- NOTE | 2022-11-28 08:24 | USCV_ITS ---
Alanna Rothman Age: 67 Gender: F : 1955 Exam Date: 11/28/2022 08:59 Ordering Phys: Makayla Baer MD ([email or web address]) Technologist: Hollis Torres Exam Location: [facility] Indication: atrial flutter symptomatic BP: 134 / 92 HR: Rhythm: Sinus Technical Quality: Adequate MEASUREMENTS (Male / Female) Normal Values Medications Patient given IV sedation by anesthesia service, for details please refer to the anesthesia report. Complications Intubation east. Attempts x1. No blood on probe post procedure. Patient tolerated procedure well. Proc. Components The SAMIRA probe was passed into the posterior pharynx , mid- esophagus, distal esophagus, and gastric fundus. SAMIRA was performed at multiple levels. FINDINGS Left Ventricle Normal left ventricular size, systolic function and wall thickness, with no regional wall motion abnormalities. Left ventricular ejection fraction is estimated at 55 %. Right Ventricle Normal right ventricular size and systolic function. Right Atrium Normal right atrial size. Left Atrium Normal left atrial size. LA Appendage Normal left atrial appendage. Decreased flow velocities in the left atrial appendage. No thrombus visualized in the left atrial appendage. IA Septum Normal interatrial septum. No patent foramen ovale by color flow and agitated saline study. Mitral Valve Structurally normal mitral valve. No mitral valve stenosis. Trace mitral valve regurgitation. Aortic Valve Structurally normal trileaflet aortic valve. No aortic valve stenosis. No aortic valve regurgitation. Tricuspid Valve Structurally normal tricuspid valve. Trace tricuspid valve regurgitation. Pulmonic Valve Structurally normal pulmonic valve. No pulmonary valve stenosis. Trace pulmonary valve regurgitation. Pericardium No pericardial effusion. Aorta Normal size aortic root and proximal ascending aorta. No aortic dilation, aneurysm or dissection. Grade III atheroma noted in proiximal descending aorta. CONCLUSIONS 1. Normal left ventricular size, systolic function and wall thickness, with no regional wall motion abnormalities. Left ventricular ejection fraction is estimated at 55 %. 2. No left atrial or left atrial appendage thrombus. 3. No prior similar studies to compare. Makayla Baer MD (Electronically Signed) Final Date: 29 November 2022 10:29 S
[2022-11-28] MEDS: pantoprazole DR 40 mg Tablet PO (08:42)
[2022-11-28] MEDS: amiodarone 200 mg Tablet 400 MG PO ×2 (08:42→18:22)
--- NOTE | 2022-11-28 09:31 | ECG_ITS ---
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 Measurements Intervals [place] Rate: 72 P: 43 [place]: 153 QRS: 29 QRSD: 91 T: 14 QT: 380 QTc: 417 Interpretive Statements SINUS RHYTHM Compared to ECG 11/26/2022 21:26:12 Atrial flutter no longer present Electronically Signed On 11-28-2022 10:54:19 CDT by Makayla Baer M.D. [id number]
[2022-11-28] MEDS: apixaban 5 mg Tablet PO ×2 (10:34→20:42)
--- NOTE | 2022-11-28 16:19 | PM.PN ---
Subjective Subjective: Patient underwent cardioversion earlier today for persistent A-fib by cardiology. Since then has remained in sinus rhythm with heart rate between 60 to 70 bpm. Feels well overall. Medications: Reviewed: Yes Vitals/I&O/Wt Last Vital Signs Temp 97.5 F L 11/28/22 16:00 Pulse 63 11/28/22 16:00 Resp 17 11/28/22 16:00 BP 104/51 11/28/22 16:00 Pulse Ox 97 11/28/22 16:00 O2 Del Method Room Air 11/28/22 16:00 11/28/22 11/28/22 11/28/22 06:59 14:59 22:59 Intake Total 420 / 1310.677 Balance 420 / 1310.677 Physical Exam Narrative: General: No acute distress, AO x3 HEENT: PERRLA, pupils bilaterally equal and reactive, pallors not present Chest: Normal vesicular breath sounds, no added sounds, equal good air entry bilaterally CVS: S1-S2 regular, no murmurs, no tachycardia, no gallops, no rubs Abdomen: Soft, nontender, no organomegaly, bowel sounds present Neuro: No focal deficits, no facial deformity, AO x3, power 5/5 in all limbs Data 11/28/22 04:47 11/28/22 04:47 A&P Assessment and plan (1) Atrial fibrillation with RVR: New onset atrial fibrillation with RVR. Did not respond to cardizem, amiodarone, digoxin and q6h po metoprolol s/p cardioversion earlier today with cardiology. Continue amiodarone 400mg BID and metoprolol 25mg po q12h Baseline troponin of 36--> 39 ---> 44 D-dimer 0.89, appears to be age appropriate mildly elevated TSH but normal FT3 and FT4 Echocardiogram N/a due to tachycardia [id number] score 4 ,full dose lovenox now transitioned to Eliquis 5mg BID Attestations Medical Necessity Statement*: s/p cardioversion earlier today, now in sinus rhythm Coding Level of Care Code Acute Code for Chg Fwd Moderate MDM includes number and complexity of problems actively addressed during encounter, amount and/or complexity of data reviewed/ordered and described risk of complication, morbidity or mortality of management as documented Diagnoses Atrial fibrillation with RVR I48.91
[2022-11-28] MEDS: atorvastatin 40 mg Tablet 20 MG PO (20:41)
[2022-11-28] MEDS: trazodone 50 mg Tablet PO (20:41)
[2022-11-28] MEDS: metformin 500 mg Tablet PO (20:41)
[2022-11-28] MEDS: lisinopril 20 mg Tablet 30 MG PO (20:42)
[2022-11-29] VITALS (7 sets, daily range): BP systolic 112–155; BP diastolic 62–68; PULSE 55–61; RESP 15–20; TEMP 36.6–36.8; O2SAT 96–98
[2022-11-29 04:19] LABS: Basophils # 0.1 10^3/uL (0.0-0.1); Basophils % 0.7 %; Eosinophils # 0.2 10^3/uL (0.0-0.8); Eosinophils % 2.7 %; Hematocrit 39.1 % (36-47); Lymphocytes # 1.9 10^3/uL (0.8-4.8); Lymphocytes % 25.3 %; Mean Corpuscular Hemoglobin 30.4 pg (27-33); Mean Corpuscular Volume 92.2 fl (85-98); Mean Platelet Volume 9.3 fL (7.4-10.4); Monocytes % 13.2 %; Neutrophils # 4.34 10^3/uL (1.8-7.7); Neutrophils % 57.7 %; Nucleated Red Blood Cells % 0 %; Platelet Count 218 10^3/cmm (157-399); Red Blood Count 4.24 10^6/uL (3.85-5.65); White Blood Count 7.51 10^3/uL (3.29-11.43)
[2022-11-29 04:38] LABS: Alanine Aminotransferase 10 U/L (0-33); Albumin Level 3.5 g/dL (3.5-5.2); Alkaline Phosphatase 52 U/L (35-105); Anion Gap 11.4 (5-19); Aspartate Amino Transferase 14 U/L (0-32); Blood Urea Nitrogen 29 mg/dL (8-23); Calcium 8.9 mg/dL (8.5-10.5); Carbon Dioxide 26 mmol/L (22-29); Chloride 103 mmol/L (98-107); Glomerular Filtration Rate 40.6 mL/min (90-130); Glucose 120 mg/dL (65-115); Osmolality Calculated 289 mOsm/kg (285-295); Potassium 4.4 mmol/L (3.5-5.1); Sodium 136 mmol/L (136-145); Total Bilirubin 0.5 mg/dL (0.15-1.2); Total Protein 6.5 g/dL (6.6-8.7)
[2022-11-29] MEDS: metoprolol tartrate 25 mg Tablet PO (08:25)
[2022-11-29] MEDS: amiodarone 200 mg Tablet 400 MG PO (08:26)
[2022-11-29] MEDS: apixaban 5 mg Tablet PO (08:26)
[2022-11-29] MEDS: pantoprazole DR 40 mg Tablet PO (08:26)
--- NOTE | 2022-11-29 10:00 | PM.PN ---
Subjective Subjective: doing well, eager to go home Medications: Reviewed: Yes Vitals/I&O/Wt Last Vital Signs Temp 98.2 F 11/29/22 07:37 Pulse 58 L 11/29/22 08:00 Resp 16 11/29/22 07:37 BP 112/62 11/29/22 07:37 Pulse Ox 97 11/29/22 08:00 O2 Del Method Room Air 11/29/22 08:00 11/28/22 11/29/22 11/29/22 22:59 06:59 14:59 Intake Total 0 / 225.661 240 / 240 Balance 0 / 225.661 240 / 240 Physical Exam Const: COMMON NORMALS: no acute distress, patient oriented x3 and alert GENERAL APPEARANCE: cooperative, comfortable, well kempt and well hydrated HENMT: COMMON NORMALS: hearing grossly normal bilaterally, external ears normal and moist oral mucous membranes FACE & SINUS: normal facial exam EXTERNAL EAR: Yes external ears normal MOUTH: lip normal Eye: COMMON NORMALS: EOMs intact bilaterally and no scleral icterus GENERAL EYE: appearance normal, both eyes and all related structures ALIGNMENT: Yes alignment normal Neck/C-Spine: COMMON NORMALS: no lymphadenopathy, supple and no JVD GENERAL: Yes normal visual inspection and Yes trachea midline CAROTIDS: Yes normal carotid upstroke Lymph: LYMPHATIC: no lymphadenopathy noted Chest: COMMONS NORMALS: normal inspection of the chest and normal palpation of entire chest wall CHEST: Yes Symmetrical chest wall rise and No tenderness Resp: COMMON NORMALS: clear to auscultation bilaterally EFFORT & INSPECTION: Yes able to speak in complete sentences and No respiratory distress AUSCULTATION: clear to auscultation bilaterally, no crackles, no rales, no rhonchi and no wheezes Cardio: COMMON NORMALS: no JVD, regular rate, regular rhythm, S1 normal heart sound present, S2 normal heart sound present and Peripheral pulses 2+ throughout PALPATION: normal PMI RATE: regular rate RHYTHM: regular rhythm HEART SOUNDS: S1 normal heart sound present, S2 normal heart sound present, no click, no gallops and no murmurs BRUITS: no carotid bruits PERIPHERAL PULSES: Peripheral pulses 2+ throughout, radial pulses present, posterior tibial pulses present and dorsalis pedis present GI: COMMON NORMALS: Soft to palpation AUSCULTATION: Yes normoactive bowel sounds PALPATION: Yes Soft to palpation, No Tenderness to palpation present (GI), No Guarding due to palpation present (GI) and No Rigid due to palpation PERCUSSION: tympanic to percussion Extremity: GENERAL: No clubbing, No cyanosis, No edema and No pallor Neuro: COMMON NORMALS: patient oriented x3, CN's II-XII intact bilaterally and no focal motor deficits SENSORIUM/ORIENTATION: Yes alert Psych: COMMON NORMALS: Normal thought process present and speech normal APPEARANCE: Yes well kempt SPEECH: Yes normal speech MOOD & AFFECT: Yes euthymic mood THOUGHT PROCESS: Normal thought process present THOUGHT CONTENT: Yes Normal thought content present Data 11/29/22 03:30 11/29/22 03:30 A&P Assessment and plan (1) Atrial flutter with rapid ventricular response: Normal LV function on echo. TSH slightly elevated with normal T3 and T4 s/p SAMIRA/CV Patient tolerated the procedure well and converted to sinus bradycardia. Blood pressure soft post cardioversion. [id number]= 4 on 9, 1 for hypertension, 1 for diabetes, 1 for age and 1 for female sex continue on Eliquis 5 mg p.o. twice daily and metoprolol tartrate to 25 mg every 12. -amiodarone 200 mg PO BIDx 3 weeks and then 200 mg daily -f/u in 1 week with Malia -f/u CMP, thyroid panel in 4-6 weeks (2) HTN (hypertension): BP running soft -decrease lisinopril to 20 mg dailys (3) Diabetes mellitus: (4) Hyperlipidemia: Plan MONIQUE: 500 ml NS bolus Attestations Medical Necessity Statement*: stable to be discharged Coding Level of Care Code 75838 Diagnoses Atrial flutter with rapid ventricular response I48.92 HTN (hypertension) I10 Diabetes mellitus E11.9 Hyperlipidemia E78.5
[2022-11-29] MEDS: sodium chloride 0.9% 500 ML 999 ML IV (10:11)
--- NOTE | 2022-11-29 12:10 | PC.SOCIAL ---
Pg 2 IMM Explained to pt Pg 2 IMM. No questions voiced. Provided pt a copy. Initialed, dated, & timed a copy & placed in chart.
--- NOTE | 2022-11-29 13:06 | PM.DCS ---
Discharge Providers Date of Admission: 11/26/22 13:55 Date of Discharge: November 29, 2022 Attending Provider at Admission: Jessie Alicia MD Attending Provider at Discharge: Terrance Briggs MD Primary Care Provider: Monika Tafoya Diagnoses at Discharge Discharge Diagnosis (1) Atrial flutter with rapid ventricular response: Status: Acute (2) HTN (hypertension): Status: Acute (3) Diabetes mellitus: Status: Acute (4) Hyperlipidemia: Status: Acute Reason for Visit Reason for Visit: chest pain, high bp, fast heartrate Hospital Course Hospital Course Alanna Rothman is a 67 year old female with a past medical history of hypertension, diabetes mellitus who presents to the emergency room today with chief complaints of chest pain palpitations.? At home she noted her blood pressure to be initially elevated between 150 to 190 mmHg and heart rate sustaining in the 150s which brought her to the emergency room. Here she was noted to have new onset A-fib with RVR with heart rate in the 1 30-1 50.? It did not respond to starting Cardizem infusion.? She was thereafter switched to amiodarone infusion which she is continuing now.? She does not appear to have received bolus dose so far. No past history of known atrial fibrillation.? Denies past history of similar symptoms.? She had URI-like symptoms approximately 1 week ago.? She was taking some oral decongestants but has not used any in the last 4 to 5 days.? Drinks 1 cup of coffee a day.? Non-smoker. This is a 67-year-old female who is admitted to [facility] for A-fib with RVR, received Cardizem, amiodarone, digoxin, metoprolol, with difficult to control A-fib, cardiology was consulted, underwent cardioversion, tolerated procedure well, converted to normal sinus rhythm, remained in normal sinus rhythm, will be discharged on metoprolol, amiodarone, Eliquis with close follow-up cardiology as outpatient, Severo Vasc score 4. On discharge patient's creatinine was 1.3, she received IV fluids before her discharge, lisinopril dose decreased to 20 mg once daily, follow-up with primary care, discontinue ibuprofen Physical Exam Const: COMMON NORMALS: no acute distress and patient oriented x3 Resp: COMMON NORMALS: normal respiratory effort, No retractions, No use of accessory muscles and clear to auscultation bilaterally AUSCULTATION: clear to auscultation bilaterally Cardio: COMMON NORMALS: regular rate, regular rhythm, S1 normal heart sound present and S2 normal heart sound present RATE: regular rate RHYTHM: regular rhythm HEART SOUNDS: S1 normal heart sound present and S2 normal heart sound present GI: COMMON NORMALS: Normal to inspection, nondistended, normoactive bowel sounds present and non-tender Extremity: COMMON NORMALS: no pedal edema Neuro: COMMON NORMALS: patient oriented x3 Psych: COMMON NORMALS: mental status grossly normal Discharge Data Studies Completed and Pending Completed Studies During Hospitalization Category Date Time Status XR chest 1V portable [id number] Stat Exams 11/26/22 12:02 Completed SAMIRA [CV. echo transesophageal [id number]] Routine Ultrasound 11/28/22 08:24 Completed Laboratory Results WBC 7.51 10^3/uL (3.29-11.43) 11/29/22 03:30 RBC 4.24 10^6/uL (3.85-5.65) 11/29/22 03:30 Hgb 12.90 g/dL (11.27-16.99) 11/29/22 03:30 Hct 39.1 % (36-47) 11/29/22 03:30 MCV 92.2 fl (85-98) 11/29/22 03:30 MCH 30.4 pg (27-33) 11/29/22 03:30 MCHC 33.0 g/dL (30-55) 11/29/22 03:30 RDW 13.0 % (12.1-15.1) 11/29/22 03:30 Plt Count 218 10^3/cmm (157-399) 11/29/22 03:30 MPV 9.3 fL (7.4-10.4) 11/29/22 03:30 Neut % (Auto) 57.7 % 11/29/22 03:30 Lymph % (Auto) 25.3 % 11/29/22 03:30 [place] % (Auto) 13.2 % 11/29/22 03:30 Eos % (Auto) 2.7 % 11/29/22 03:30 Baso % (Auto) 0.7 % 11/29/22 03:30 Neut # (Auto) 4.34 10^3/uL (1.8-7.7) 11/29/22 03:30 Lymph # (Auto) 1.9 10^3/uL (0.8-4.8) 11/29/22 03:30 [place] # (Auto) 1.0 10^3/uL (0.2-0.9) H 11/29/22 03:30 Eos # (Auto) 0.2 10^3/uL (0.0-0.8) 11/29/22 03:30 Baso # (Auto) 0.1 10^3/uL (0.0-0.1) 11/29/22 03:30 Nucleated RBC % (auto) 0 % 11/29/22 03:30 Nucleated RBCs # 0.0 /100WBC 11/29/22 03:30 D-Dimer 0.89 ug/mLFEU (0-0.59) H 11/26/22 12:08 Sodium 136 mmol/L (136-145) 11/29/22 03:30 Potassium 4.4 mmol/L (3.5-5.1) 11/29/22 03:30 Chloride 103 mmol/L (98-107) 11/29/22 03:30 Carbon Dioxide 26 mmol/L (22-29) 11/29/22 03:30 Anion Gap 11.4 (5-19) 11/29/22 03:30 BUN 29 mg/dL (8-23) H 11/29/22 03:30 Creatinine 1.3 mg/dL (0.5-0.9) H 11/29/22 03:30 GFR Calculation 40.6 mL/min (90-130) L 11/29/22 03:30 Glucose 120 mg/dL (65-115) H 11/29/22 03:30 Calculated Osmolality 289 mOsm/kg (285-295) 11/29/22 03:30 Calcium 8.9 mg/dL (8.5-10.5) 11/29/22 03:30 Magnesium 2.1 mg/dL (1.7-2.3) 11/26/22 12:08 Total Bilirubin 0.5 mg/dL (0.15-1.2) 11/29/22 03:30 AST 14 U/L (0-32) 11/29/22 03:30 ALT 10 U/L (0-33) 11/29/22 03:30 Alkaline Phosphatase 52 U/L (35-105) 11/29/22 03:30 Troponin T Baseline 36 ng/L (0-10) H 11/26/22 12:08 Troponin T 120 Minute 39.37 ng/L (0-10) H 11/26/22 14:10 Delta Troponin T 3.37 ABS# (0-10) 11/26/22 14:10 Troponin T Hi Sens 6Hr 44.54 ng/L (0-10) H 11/26/22 17:20 Troponin T Hi Sens 6Hr Delta 8.54 ng/L (0-12) 11/26/22 17:20 NT-Pro-B Natriuret Pep 436 pg/mL (0-125) H 11/26/22 12:08 Total Protein 6.5 g/dL (6.6-8.7) L 11/29/22 03:30 Albumin 3.5 g/dL (3.5-5.2) 11/29/22 03:30 Globulin 3.0 g/dL (1.3-4.6) 11/29/22 03:30 TSH 4.85 uIU/mL (0.27-4.20) H 11/26/22 12:08 TSH Cancelled 11/26/22 12:08 Free T4 0.97 ng/dL (0.82-1.77) 11/27/22 01:50 Free T3 2.9 PG/ML (2.0-4.4) 11/27/22 01:50 Nasal Influ A H1 2008 PCR Not detected (NOT DETECT) 11/26/22 16:18 Adenovirus (PCR) Not detected (NOT DETECT) 11/26/22 16:18 C. pneumoniae DNA (PCR) Not detected (NOT DETECT) 11/26/22 16:18 Coronavirus 229E (PCR) Not detected (NOT DETECT) 11/26/22 16:18 Human Metapneumovir PCR Not detected (NOT DETECT) 11/26/22 16:18 Influenza A (H1) PCR Not detected (NOT DETECT) 11/26/22 16:18 Influenza A (H3) PCR Not detected (NOT DETECT) 11/26/22 16:18 Influenza Type A (PCR) Not detected (NOT DETECT) 11/26/22 16:18 Influenza Type B (PCR) Not detected (NOT DETECT) 11/26/22 16:18 M. pneumoniae (PCR) Not detected (NOT DETECT) 11/26/22 16:18 Parainfluenza 1 (PCR) Not detected (NOT DETECT) 11/26/22 16:18 Parainfluenza 2 (PCR) Not detected (NOT DETECT) 11/26/22 16:18 Parainfluenza 3 (PCR) Not detected (NOT DETECT) 11/26/22 16:18 Parainfluenza 4 (PCR) Not detected (NOT DETECT) 11/26/22 16:18 RSV Type A (PCR) Not detected (NOT DETECT) 11/26/22 16:18 RSV Type B (PCR) Not detected (NOT DETECT) 11/26/22 16:18 Entero/Rhino (PCR) Detected (NOT DETECT) A 11/26/22 16:18 SARS-CoV-2 (PCR) Not detected (NOT DETECT) 11/26/22 16:18 Vitals Last Vital Signs Temp 97.9 F 11/29/22 11:21 Pulse 61 11/29/22 11:21 Resp 15 11/29/22 11:21 BP 155/66 11/29/22 11:21 Pulse Ox 96 11/29/22 11:21 O2 Del Method Room Air 11/29/22 11:21 Discharge Plan Discharge Patient Disposition: Home Condition: Stable Prescriptions: New amiodarone [Pacerone] 200 mg Tablet See Rx Instructions .ROUTE .COMPLEX Qty: 60 2RF Rx Instructions: 200 mg orally, Take 1 tab twice a day x 3 weeks and then 200 mg daily lisinopril 20 mg Tablet 20 mg PO BEDTIME Qty: 90 2RF Eliquis 5 mg Tablet 5 mg PO BID@0900,2100 Qty: 60 3RF metoprolol tartrate 25 mg Tablet 25 mg PO BID@0900,2100 Qty: 180 1RF Continued metformin 500 mg tablet 500 mg PO BEDTIME simvastatin 10 mg tablet 10 mg PO BEDTIME trazodone 50 mg tablet 50 mg PO BEDTIME Benadryl 25 mg Capsule 25 mg PO BEDTIME Discontinued ibuprofen 200 mg Tablet 600 mg PO BID lisinopril 30 mg tablet 30 mg PO BEDTIME Discharge Orders: Discharge Order (Routine); Ordered 11/29/22 Ordered By: Terrance Briggs Referrals: Monika Tafoya FNP [Primary Care Provider] - Malia Meléndez FNP [Nurse Practitioner] - 7-10 days (Atrial flutter post cardioversion) Discharge Diet: Cardiac Discharge Activity: Resume usual activity Patient Instructions: Opioid Safety Activity Restrictions/Additional Instructions: - Please take Eliquis as prescribed, if you develop bloody or black stools, please go to the emergency room -Please follow-up with cardiology Discharge Attestations Time Spent in Discharge Care*: greater than 30 min Quality Metrics Clinical Quality Measures [ No reported AMI, CVA or VTE this stay] Coding Level of Care Code 35925 Total time (in minutes) for Discharge: 45 Diagnoses Atrial flutter with rapid ventricular response I48.92 HTN (hypertension) I10 Diabetes mellitus E11.9 Hyperlipidemia E78.5
--- NOTE | 2022-11-29 15:23 | PC.NURSE ---
Discharge Note Patient discharged to [home] via [w/c to POV] accompanied by [daughter]. Discharge instructions reviewed with patient and/or business office representative. Mobile pharmacy medications and/or prescriptions provided. Belongings/home medications returned.
== END 2022-11-29 15:17 | disposition home or self-care (01) | DRG 310 ==
LOC: ER 12:04 → CSU 14:44
PROVIDERS: Admitting Provider Student in an Organized Health Care Education/Training Program; Emergency Provider Family Medicine; PCP Nurse Practitioner Family; Visit Provider Family Medicine
DX: I48.91 Unspecified atrial fibrillation (principal); E11.9 Type 2 diabetes mellitus without complications; I10 Essential (primary) hypertension; Z79.84 Long term (current) use of oral hypoglycemic drugs; Z79.891 Long term (current) use of opiate analgesic; Z20.822 Contact with and (suspected) exposure to COVID-19; E78.5 Hyperlipidemia, unspecified
CPT/HCPCS: 36415; 71045; 80053; 83735; 83880; 84439; 84443; 84481; 84484; 85025; 85378; 87486; 87581; 87633; 93005; 93312; 93320; 93325; 96365; 96366; 96372; 96375; 96376; 99285; J0282; J1160; J1650; J2405; J3490; J7040; J7060

== ENCOUNTER → 2022-12-07 09:57 | Outpatient (BNVA) | payer MEDICARE, SELFPAY | PROVIDERS: PCP Nurse Practitioner Family; Visit Provider Nurse Practitioner Family | DX: I48.91 Unspecified atrial fibrillation (principal); I10 Essential (primary) hypertension; R00.1 Bradycardia, unspecified | CPT/HCPCS: 93005; 99214 ==

== ENCOUNTER → 2023-01-04 11:04 | Outpatient (BNVA) | payer MEDICARE, SELFPAY | PROVIDERS: PCP Nurse Practitioner Family; Referring Provider Nurse Practitioner Family; Visit Provider Internal Medicine Cardiovascular Disease | DX: I48.91 Unspecified atrial fibrillation (principal) | CPT/HCPCS: 93005 ==

== ENCOUNTER → 2023-01-13 08:32 | Outpatient (BNVA) | payer MEDICARE, SELFPAY | PROVIDERS: PCP Nurse Practitioner Family; Visit Provider Internal Medicine Cardiovascular Disease | DX: I48.91 Unspecified atrial fibrillation (principal); Z79.01 Long term (current) use of anticoagulants; I10 Essential (primary) hypertension; E78.2 Mixed hyperlipidemia; E11.69 Type 2 diabetes mellitus with other specified complication; Z79.84 Long term (current) use of oral hypoglycemic drugs | CPT/HCPCS: 99214 ==

== ENCOUNTER → 2023-01-14 09:22 | Outpatient (BNVA) | payer MEDICARE, SELFPAY | PROVIDERS: PCP Nurse Practitioner Family; Visit Provider Podiatrist Foot & Ankle Surgery | DX: M25.571 Pain in right ankle and joints of right foot (principal); M79.671 Pain in right foot; M76.829 Posterior tibial tendinitis, unspecified leg; M21.6X1 Other acquired deformities of right foot; M21.6X2 Other acquired deformities of left foot | CPT/HCPCS: 73610; 73630; 99203 ==

== ENCOUNTER 2023-02-23 14:55 | Outpatient (CLI) | payer MEDICARE, SELFPAY ==
--- NOTE | 2023-02-23 15:02 | XR_ITS ---
WS: [id number] Exam: XR shoulder LT min 2V* [id number] Date/Time of Exam: 02/23/2023 3:10 PM Reason For Exam: Fall No acute fracture or dislocation. Mild degenerative change of the AC joint. High riding humeral head may indicate rotator cuff degeneration or tear. Normal soft tissues. IMPRESSION: 1. Mild AC joint DJD. 2. High riding humeral head might indicate rotator cuff pathology.
--- NOTE | 2023-02-23 15:02 | XR_ITS ---
WS: [id number] Exam: [place] [id number] Date/Time of Exam: 02/23/2023 3:10 PM Reason For Exam: Fall Findings: There are no fractures or bone anomalies. The bony elements are in adequate alignment. There are no soft tissue calcifications or infiltration. The joint spaces are smooth and intact. IMPRESSION: Negative LEFT humerus.
== END 2023-02-23 14:56 | disposition home or self-care (01) ==
LOC: RAD 14:56
PROVIDERS: PCP Nurse Practitioner Family; Visit Provider Nurse Practitioner Family
DX: M25.512 Pain in left shoulder (principal); W19.XXXA Unspecified fall, initial encounter
CPT/HCPCS: 73030; 73060

== ENCOUNTER → 2023-02-25 09:35 | Outpatient (BNVA) | payer MEDICARE, SELFPAY | PROVIDERS: PCP Nurse Practitioner Family; Visit Provider Podiatrist Foot & Ankle Surgery | DX: M21.6X1 Other acquired deformities of right foot; M21.6X2 Other acquired deformities of left foot; M25.571 Pain in right ankle and joints of right foot; M76.822 Posterior tibial tendinitis, left leg | CPT/HCPCS: 99213 ==

== ENCOUNTER 2023-03-07 11:41 | Outpatient (CLI) | payer MEDICARE, SELFPAY | END 2023-03-07 11:42 | disposition home or self-care (01) | LOC: SPT 11:42 | PROVIDERS: PCP Nurse Practitioner Family; Visit Provider Podiatrist Foot & Ankle Surgery | DX: Z46.89 Encounter for fitting and adjustment of other specified devices (principal); M79.671 Pain in right foot; M79.672 Pain in left foot | CPT/HCPCS: 97760; L3030 ==

== ENCOUNTER 2023-03-23 11:33 | Outpatient (CLI) | payer MEDICARE, SELFPAY ==
--- NOTE | 2023-03-23 11:39 | MR_ITS ---
WS: [id number] MRI LEFT SHOULDER NONCONTRAST TECHNIQUE: Sagittal T2, coronal T1, T2 and proton density imaging. Axial gradient PDE imaging. CLINICAL INFORMATION: ABNORMAL MUSCULOSKELETAL SYSTEM IMAGING/L SHOULDER PAIN COMPARISON: None. FINDINGS: Moderate degenerative arthritis AC joint with fluid and edema. Mild downsloping acromion. Subacromial spurring. Impingement distal supraspinatus. Small amount of subacromial and subdeltoid fluid. Slight impingement on the underlying supraspinatus with tendinopathy. Mild chronic thinning of the supraspi natus. Infraspinatus is intact. Normal teres minor. Subscapularis appears intact. Biceps tendon appears intact within the bicipital groove. Degenerative fraying of the glenoid labrum. Biceps labral anchor appears intact. Moderate degenerative narrowing of the glenohumeral articulatio n. Otherwise normal visualized soft tissues. Normal bone marrow signal in the humerus and glenoid. IMPRESSION: 1. 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 Small amount of subacromial and subdeltoid fluid. Mild narrowing of the subacromial space. 2. Mild downsloping acromion with impingement on the distal supraspinatus with subacromial spurring. 3. Chronic thinning of the distal supraspinatus with tendinopathy. 4. Rotator cuff is otherwise normal in appearance. 5. Biceps tendon appears intact within the bicipital groove. 6. Degenerative fraying of the glenoid labrum. 7. Moderate degenerative narrowing at the glenohumeral articulation.
== END 2023-03-23 11:34 | disposition home or self-care (01) ==
LOC: RAD 11:35
PROVIDERS: PCP Nurse Practitioner Family; Visit Provider Nurse Practitioner Family
DX: M19.012 Primary osteoarthritis, left shoulder (principal); M67.814 Other specified disorders of tendon, left shoulder; R93.7 Abnormal findings on diagnostic imaging of other parts of musculoskeletal system
CPT/HCPCS: 73221

== ENCOUNTER → 2023-03-30 13:40 | Outpatient (BNVA) | payer MEDICARE, SELFPAY | PROVIDERS: PCP Nurse Practitioner Family; Referring Provider Nurse Practitioner Family; Visit Provider Specialist | DX: M25.812 Other specified joint disorders, left shoulder (principal); M19.012 Primary osteoarthritis, left shoulder | CPT/HCPCS: 99204 ==

== ENCOUNTER 2023-04-01 10:20 | Outpatient (CLI) | payer MEDICARE, SELFPAY ==
--- NOTE | 2023-04-01 10:39 | MM_ITS ---
WS: [id number] BILATERAL SCREENING DIGITAL TOMOSYNTHESIS MAMMOGRAM WITH CAD HISTORY: SCREENING COMPARISON: 03/31/2022, 04/08/2020 Bilateral CC and MLO views with tomosynthesis and synthetic mammography submitted. Computer aided det ection analyzed. Breast composition: There are scattered areas of fibroglandular density. No suspicious masses, microc alcifications or architectural distortion. Benign multiple calcifications in each breast are scattere d. IMPRESSION: MM/[place] [id number] BI-RADS: 2-Benign FOLLOW UP: 1 Year Follow-up
== END 2023-04-01 10:21 | disposition home or self-care (01) ==
LOC: RAD 10:20
PROVIDERS: PCP Nurse Practitioner Family; Visit Provider Nurse Practitioner Family
DX: Z12.31 Encounter for screening mammogram for malignant neoplasm of breast (principal); R92.323 Mammographic fibroglandular density, bilateral breasts
CPT/HCPCS: 77063; 77067

== ENCOUNTER 2023-05-02 14:01 | Emergency (ER) | payer MEDICARE, SELFPAY ==
[2023-05-02 14:17] VITALS: BP 176/96; PULSE 59; TEMP 36.6; O2SAT 99; BMI 37.1
--- NOTE | 2023-05-02 14:35 | XR_ITS ---
WS: [id number] Exam: XR hand LT min 3V* [id number] Date/Time of Exam: 05/02/2023 2:36 PM Reason For Exam: injury No fracture or dislocation. A ring obscures parts of the proximal fourth phalanx. Early degenerative changes in the IP joints. Soft tissues are otherwise unremarkable. IMPRESSION: 1. No acute fracture.
--- NOTE | 2023-05-02 14:43 | W.ED.UPPEXIN ---
HPI - Extremity Injury (Upper) General: Chief Complaint: Extremity Injury, Upper Stated Complaint: issue with left hand ring finger Time Seen by Provider: 05/02/23 14:46 Source: patient Mode of arrival: ambulatory Limitations: no limitations History of Present Illness: Patient is a nice 68-year-old female presents to ED today for evaluation of a left ring finger injury. Patient states earlier today she fell while [employer]. She feels like she got her index finger stuck in a portion of the cart but states that finger feels fine. She states she must have inadvertently jammed her ring finger because now it is swollen and bruised. She feels like the swelling has now caused her wedding ring to be very tight. complaint: injury to: left and finger Onset (ago): hour(s) Other Extremity Injury: Left: fingers Other injuries: none Place: other ([employer] Severity: mild Relieving factors: rest Exacerbating factors: other (movement of finger) Associated symptoms: Reports no associated symptoms Review of Systems Musc: Reports: extremity pain (L ring finger) and extremity swelling (L ring finger) FORMERLY [facility], [facility]–1983 ED PFSH: Medical History Hyperlipidemia Diabetes mellitus HTN (hypertension) Conjunctivitis URI with cough and congestion Chronic cystitis Diverticulosis Colon polyp Urolithiasis Mixed stress and urge urinary incontinence Acute cystitis without hematuria Staghorn calculus Surgical History History of removal of calculus of renal pelvis through percutaneous nephrostomy H/O tubal ligation Family History Father , at age 52 Myocardial infarction acute Mother Dementia Social History Smoking and tobacco/nicotine status: never used tobacco/nicotine Alcohol intake: never Substance/Drug Use: never Marital status: / Current occupational status: retired Physical Exam Const: COMMON NORMALS: no acute distress, average body habitus, patient oriented x3, no limitations, healthy appearing, alert and well nourished Extremity: COMMON NORMALS: capillary refill normal GENERAL: Yes normal exam except as noted LEFT UPPER EXTREMITY: Yes hand & digits (swelling/bruising L 4th finger; TTP PIP joint) Left hand and digits: Yes inspection (tight ring that is not able to be removed due to swelling) and Yes neurovascular exam (normal) Neuro: COMMON NORMALS: patient oriented x3 SENSORIUM/ORIENTATION: Yes alert Procedures Foreign Body Removal Site: left and other (4th finger) Description of foreign body: other (ring) Sedation/Analgesia: none Technique: other (ring cutter) Confirmed by:: direct visualization Complications: none Neurovascular: normal distal pulse, normal capillary fill, distal light touch sensation intact, distal motor function normal and no signs of compartment syndrome Course Vital Signs: Vital signs: Vital Signs Temperature 97.8 F 05/02/23 14:17 Pulse Rate 59 L 05/02/23 14:17 Blood Pressure 176/96 05/02/23 14:17 Pulse Oximetry 99 05/02/23 14:17 Oxygen Delivery Me thod Room Air 05/02/23 14:17 MDM - Extremity Injury (Upper) Medical Decision Making No fracture noted on XR. Ring was successfully removed using ring cutter. All radiology interpretation(s) finalized by discharge Discharge Plan Discharge Patient Disposition: Home Clinical Impression: Jammed interphalangeal joint of finger of left hand, Tight ring on finger Condition: Stable Prescriptions: No Action metformin 500 mg tablet 500 mg PO BEDTIME simvastatin 10 mg tablet 10 mg PO BEDTIME trazodone 50 mg tablet 50 mg PO BEDTIME Pacerone 200 mg tablet See Rx Instructions .ROUTE .COMPLEX Qty: 90 2RF Rx Instructions: 200 mg orally, Eliquis 5 mg tablet 5 mg PO BID@0900,2100 Qty: 60 3RF lisinopril 40 mg tablet 40 mg PO BEDTIME Qty: 90 3RF (DME) orthopedic custom inserts See Rx Instructions .Route .MEDSUPPLY Qty: 1 0RF Rx Instructions: As directed Benadryl 25 mg Capsule 25 mg PO BEDTIME Discharge Orders: Discharge ED (Routine); Ordered 05/02/23 Ordered By: Abbi Dai Referrals: Monika Tafoya FNP [Primary Care Provider] - Coding Level of Care Code ED Director Of Aviation for [place]
== END 2023-05-02 15:20 | disposition home or self-care (01) ==
PROVIDERS: Emergency Provider Physician Assistant; PCP Nurse Practitioner Family
DX: S69.82XA Other specified injuries of left wrist, hand and finger(s), initial encounter (principal); S60.445A External constriction of left ring finger, initial encounter; W49.04XA Ring or other jewelry causing external constriction, initial encounter; Z79.01 Long term (current) use of anticoagulants; Z79.84 Long term (current) use of oral hypoglycemic drugs; E78.5 Hyperlipidemia, unspecified; E11.9 Type 2 diabetes mellitus without complications; I10 Essential (primary) hypertension; W19.XXXA Unspecified fall, initial encounter; Y92.512 Supermarket, store or market as the place of occurrence of the external cause
CPT/HCPCS: 73130; 99283

== ENCOUNTER → 2023-07-14 15:32 | Outpatient (BNVA) | payer MEDICARE, SELFPAY | PROVIDERS: PCP Nurse Practitioner Family; Visit Provider Internal Medicine Cardiovascular Disease | DX: I48.91 Unspecified atrial fibrillation (principal); Z82.49 Family history of ischemic heart disease and other diseases of the circulatory system; I10 Essential (primary) hypertension; E78.2 Mixed hyperlipidemia; E11.69 Type 2 diabetes mellitus with other specified complication; Z79.84 Long term (current) use of oral hypoglycemic drugs | CPT/HCPCS: 99215 ==

== ENCOUNTER 2023-08-05 07:33 | Outpatient (CLI) | payer MEDICARE, SELFPAY ==
[2023-08-05 08:27] VITALS: BMI 37.8
--- NOTE | 2023-08-05 08:35 | ECG_ITS ---
[facility] Test Date: 2023-08-05 Pat Name: Alanna Rothman Department: Room: Gender: Female [employer] Officer: : 1955 Requested By: Marck Smith Order Number: [id number] Amaury MD: Marck Smith M.D. Interpretive Statements NAME OF STUDY: LEXISCAN SESTAMIBI STRESS TEST INDICATION: Chest Pain PROCEDURE: At the baseline, the EKG revealed sinus bradycardia with incomplete right bundle branch block pattern. The baseline heart was 57 bpm with a blood pressue of 154/85 mm of Hg Lexiscan was infused over a period of 20 seconds. A total of 0.4 milligrams of Lexiscan was infused. The stress phase was continued for a total of 5 minutes. Heart rate at the end of the stress phase was 63 bpm with a blood pressure 151/78 mm of Hg. The EKG at the peak infusion revealed no significant changes. Sestamibi was injected 20 seconds after the Lexiscan infusion. Heart rate at the end of the recovery phase was 63 bpm with a blood pressure of 145/80 mm of Hg. CONCLUSION: 1. No significant EKG changes with the LexiScan infusion 2. No LexiScan induced chest pain or cardiac arrhythmia 3. Normal blood pressure and heart rate response 4. Sestamibi/sestamibi perfusion scan pending; see separate report. Electronically Signed On 08-06-2023 15:08:51 CDT by Marck Smith M.D. [email or web address]
--- NOTE | 2023-08-05 08:36 | NMCV_ITS ---
NM marlys perf SPECT r/s* [id number] Alanna Rothman Age: 68 Gender: F : 1955 Exam Date: 08/05/2023 08:43 Ordering Phys: Marck Smith MD ([email or web address]) Technologist: INES Adams Exam Location: [facility] Indications: CP STRESS TEST Please [facility] for full findings IMAGE PROTOCOL Rest/Stress 1 Lexiscan Day Radiopharmaceutical Dose (mCi) Administration Site Administered by Rest: Tc-99m 10.6 IV INES Adams Sestamibi Stress:Tc-99m 32.9 IV INES Adams Sestamigabriela Rest: 05-Aug-2023 60 Discovery 630 Stress: 05-Aug-2023 30 Discovery 630 0.4mg Lexiscan. Supine position only as patient was unable to lay prone. SPECT RESULTS Technical Quality: Good Raw Data Analysis: Breast attenuation Image Corrections: No attenuation or motion correction applied Summed Stress Score: 2 Summed Rest Score: 2 Summed Difference Score: 1 PERFUSION FINDINGS Small area of slightly decreased tracer uptake involving the apical anterior and apical lateral segments with some reversibility in the apical lateral segment FUNCTIONAL RESULTS (calculated via Gated SPECT) Stress Image LV EF (%): 76 Stress EDV (mL):86 TID: 0.98 Stress ESV (mL):21 FUNCTIONAL FINDINGS: Segmental wall motion analysis revealing no gross wall motion abnormalities IMPRESSIONS 1. Myocardial perfusion imaging revealing a small area of slightly decreased tracer uptake involving the apical anterior and apical lateral segments with some reversibility in the apical lateral segment suggestive of myocardial scarring with a possible small area of sophia-infarction ischemia in the distribution of the distal left circumflex artery. 2. Normal LV ejection fraction 76% 3. LV wall motion analysis revealing no gross wall motion abnormalities. 4. Normal LV volume No similar previous studies are available for comparison Dr Marck Smith MD FACC (Electronically Signed) Final Date: 05 August 2023 13:28 S
[2023-08-05] MEDS: regadenoson 0.4 Mg/5 ml Syringe 0.400000000000000022 MG IVP (09:26)
[2023-08-05 09:51] VITALS: BP 145/84; PULSE 68
== END 2023-08-05 07:34 | disposition home or self-care (01) ==
PROVIDERS: PCP Nurse Practitioner Family; Visit Provider Internal Medicine Cardiovascular Disease
DX: Z98.61 Coronary angioplasty status (principal); R94.39 Abnormal result of other cardiovascular function study
CPT/HCPCS: 36415; 78452; 93017; 96374; A9500; J2785

== ENCOUNTER 2024-01-12 16:30 | Emergency (ER) | payer MEDICARE, SELFPAY ==
[2024-01-12 16:37] VITALS: BP 172/73; PULSE 73; TEMP 36.6; O2SAT 98; BMI 37.1
--- NOTE | 2024-01-12 17:14 | ECG_ITS ---
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 Measurements Intervals [place] Rate: 70 P: 46 OR: 203 QRS: 39 QRSD: 102 T: 39 QT: 425 QTc: 460 Interpretive Statements SINUS RHYTHM POSSIBLE LEFT ATRIAL ENLARGEMENT [-0.1mV P-WAVE IN V1/V2] LOW QRS VOLTAGE IN PRECORDIAL LEADS [QRS DEFLECTION < 1.0 mV IN CHEST LEADS] INCOMPLETE RIGHT BUNDLE BRANCH BLOCK [90+ ms QRS DURATION, TERMINAL R IN V1/V2, 40+ ms S IN I/aVL/V4/V5/V6] Compared to ECG 01/04/2023 11:10:57 Low QRS voltage now present Incomplete right bundle-branch block now present Electronically Signed On 01-13-2024 16:50:55 SOCCER REFEREE by Marck Smith M.D. [id number]
== END 2024-01-12 17:59 | disposition left against medical advice (07) ==
LOC: ER 16:33
PROVIDERS: Emergency Provider Family Medicine; PCP Nurse Practitioner Family
DX: Z53.21 Procedure and treatment not carried out due to patient leaving prior to being seen by health care provider (principal)
CPT/HCPCS: 93005

== ENCOUNTER → 2024-01-20 10:05 | Outpatient (BNVA) | payer MEDICARE, SELFPAY | PROVIDERS: PCP Nurse Practitioner Family; Visit Provider Nurse Practitioner Family | DX: I10 Essential (primary) hypertension (principal); I48.91 Unspecified atrial fibrillation; E78.5 Hyperlipidemia, unspecified; E11.9 Type 2 diabetes mellitus without complications | CPT/HCPCS: 99214 ==

== ENCOUNTER 2024-12-04 10:47 | Outpatient (CLI) | payer MEDICARE, SELFPAY ==
--- NOTE | 2024-12-04 10:51 | MM_ITS ---
WS: [id number] BILATERAL SCREENING DIGITAL TOMOSYNTHESIS MAMMOGRAM WITH CAD HISTORY: SCREENING COMPARISON: 04/01/2023, 03/31/2022 Bilateral CC and MLO views with tomosynthesis and synthetic mammography submitted. Computer aided detection analyzed. Breast composition: The breasts are heterogeneously dense, which may obscure small masses. No suspicious masses, microcalcifications or architectural distortion. Numerous benign calcifications in each breast. MM/MM scr tomosynthesis [id number] IMPRESSION: BI-RADS: 2 - Benign FOLLOW UP: 1 Year Follow-up
== END 2024-12-04 10:48 | disposition home or self-care (01) ==
LOC: RAD 10:48
PROVIDERS: PCP Nurse Practitioner Family; Visit Provider Nurse Practitioner Family
DX: Z12.31 Encounter for screening mammogram for malignant neoplasm of breast (principal); R92.333 Mammographic heterogeneous density, bilateral breasts; R92.1 Mammographic calcification found on diagnostic imaging of breast
CPT/HCPCS: 77063; 77067

== ENCOUNTER → 2024-12-24 10:21 | Outpatient (BNVA) | payer MEDICARE, SELFPAY | PROVIDERS: PCP Nurse Practitioner Family; Visit Provider Internal Medicine Cardiovascular Disease | DX: R00.0 Tachycardia, unspecified (principal); I48.20 Chronic atrial fibrillation, unspecified; I10 Essential (primary) hypertension; E78.5 Hyperlipidemia, unspecified; E11.9 Type 2 diabetes mellitus without complications; Z82.49 Family history of ischemic heart disease and other diseases of the circulatory system; R07.9 Chest pain, unspecified | CPT/HCPCS: 93005; 99214 ==

== ENCOUNTER 2024-12-27 15:03 | Emergency (ER) | payer MEDICARE, SELFPAY ==
[2024-12-27 15:05] VITALS: BP 149/91; PULSE 110; RESP 16; TEMP 36.5; O2SAT 99; BMI 40.3
--- NOTE | 2024-12-27 15:10 | ECG_ITS ---
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 Measurements Intervals [place] Rate: 108 P: 0 SC: 0 QRS: 67 QRSD: 111 T: 54 QT: 361 QTc: 485 Interpretive Statements ATRIAL FLUTTER/TACHYCARDIA WITH RAPID VENTRICULAR RESPONSE LOW QRS VOLTAGE IN PRECORDIAL LEADS [QRS DEFLECTION < 1.0 mV IN CHEST LEADS] POSSIBLE RIGHT VENTRICULAR CONDUCTION DELAY [RSR (QR) IN V1/V2] PROBABLE ANTEROLATERAL MYOCARDIAL INFARCTION , OF INDETERMINATE AGE [35 ms Q WAVE IN I/aVL/V3-V6] ST DEPRESSION, CONSIDER SUBENDOCARDIAL INJURY [0.1+ mV ST DEPRESSION] Compared to ECG 12/24/2024 10:52:06 Low QRS voltage now present Myocardial infarct finding still present ST (T wave) deviation still present Electronically Signed On 12-29-2024 14:10:14 ICING MAKER by Marck Smith M.D. [id number]
[2024-12-27 15:58] LABS: Hematocrit 40.4 % (36-47); Hemoglobin 13.00 g/dL (11.27-16.99); Mean Corpuscular HGB Conc 32.2 g/dL (30-55); Mean Corpuscular Hemoglobin 31.0 pg (27-33); Mean Corpuscular Volume 96.2 fl (85-98); Nucleated Red Blood Cells % 0 %; Platelet Count 215 10^3/cmm (157-399); Red Blood Count 4.20 10^6/uL (3.85-5.65); White Blood Count 4.48 10^3/uL (3.29-11.43)
--- NOTE | 2024-12-27 16:04 | XRR_ITS ---
PROCEDURE INFORMATION: Exam: XR Chest Exam date and time: 12/27/2024 4:07 PM Age: 69 years old Clinical indication: Shortness of breath; Additional info: SOB TECHNIQUE: Imaging protocol: Radiologic exam of the chest. Views: 1 view. COMPARISON: CR XR chest 1V portable [id number] 11/26/2022 12:11 PM FINDINGS: Lungs: No infiltrates. No suspicious masses or nodules. No pulmonary vascular congestion. Pleural spaces: No pleural effusions or pneumothorax. Heart/Mediastinum: Mild cardiomegaly. Bones/joints: No significant osseous lesion. No fractures. XR/XR chest 1V portable [id number] IMPRESSION: 1. No acute cardiopulmonary findings radiographically. 2. Mild cardiomegaly.
--- NOTE | 2024-12-27 16:12 | W.ED.SOB ---
HPI - SOB/Dyspnea General: Chief Complaint: Shortness of Breath/Dyspnea Stated Complaint: high bp Time Seen by Provider: 12/27/24 16:02 Source: patient Mode of arrival: ambulatory Limitations: no limitations History of Present Illness: HPI Narrative: 69-year-old female with a history of atrial flutter states she is on amiodarone states that she did start a matte cutter earlier this week and was started on metoprolol 12.5 mg that she has been having some increased heart rates along with hypertension. She states that today she has been hypertensive with heart rate in the 110s had some mild dyspnea denies any active chest pain. She states that she gets the symptoms when she is in a flutter with RVR. Denies any cough or fever Related Data Home Medications ?Medication ?Instructions ?Recorded ?Confirmed trazodone 50 mg tablet 50 mg PO BEDTIME 11/19/19 12/24/24 diphenhydramine HCl 25 mg capsule 25 mg PO BEDTIME 11/26/22 12/24/24 (Benadryl) levothyroxine 50 mcg capsule 50 mcg PO DAILY 07/14/23 12/24/24 Previous Rx's ?Medication ?Instructions ?Recorded lisinopril 40 mg tablet 40 mg PO BEDTIME #90 tabs 01/13/23 orthopedic custom inserts #1 ea 01/17/23 amiodarone 200 mg tablet (Pacerone) 200 mg PO DAILY #90 tabs 07/16/24 dabigatran etexilate 150 mg 150 mg PO BID #180 caps 10/01/24 capsule (Pradaxa) diltiazem HCl 30 mg tablet 30 mg PO Q8H #90 tabs 12/27/24 (Cardizem) Allergies Allergy/AdvReac Type Severity Reaction Status Date / Time aspirin Allergy ADR-Nausea Verified 01/20/24 10:10 [facility] ED PFSH: Medical History (Updated 12/27/24 @ 17:00 by Michele Huffman MD) Hyperlipidemia Diabetes mellitus HTN (hypertension) Conjunctivitis URI with cough and congestion Chronic cystitis Diverticulosis Colon polyp Urolithiasis Mixed stress and urge urinary incontinence Acute cystitis without hematuria Staghorn calculus Surgical History History of removal of calculus of renal pelvis through percutaneous nephrostomy H/O tubal ligation Family History Father , at age 52 Myocardial infarction acute Mother Dementia Social History Smoking and tobacco/nicotine status: never used tobacco/nicotine Alcohol intake: never Substance/Drug Use: never Marital status: / Current occupational status: retired Physical Exam Const: COMMON NORMALS: no acute distress, patient oriented x3 and healthy appearing HENMT: COMMON NORMALS: normocephalic and atraumatic HEAD & SCALP: normocephalic and atraumatic Eye: COMMON NORMALS: conjunctivae normal CONJUNCTIVA: Yes conjunctivae normal Neck/C-Spine: COMMON NORMALS: full ROM and supple Chest: COMMONS NORMALS: normal inspection of the chest Resp: COMMON NORMALS: normal respiratory effort, No retractions, No use of accessory muscles and clear to auscultation bilaterally AUSCULTATION: clear to auscultation bilaterally Cardio: COMMON NORMALS: No murmurs present (Cardio) RATE: tachycardic RHYTHM: abnormal rhythm irregularly irregular GI: COMMON NORMALS: Normal to inspection, nondistended, normoactive bowel sounds present, Soft to palpation, non-tender and no masses PALPATION: Yes Soft to palpation Extremity: COMMON NORMALS: normal to inspection and full ROM Neuro: COMMON NORMALS: patient oriented x3, moves all extremities and no focal motor deficits Psych: COMMON NORMALS: mental status grossly normal, Normal thought process present and cooperative THOUGHT PROCESS: Normal thought process present Skin: COMMON NORMALS: no rashes or lesions noted and no wounds GENERAL SKIN EXAM: no rashes or lesions noted Course Vital Signs: Vital signs: Vital Signs Temperature 97.7 F 12/27/24 15:05 Pulse Rate 75 12/27/24 16:58 Respiratory Rate 16 12/27/24 16:58 Blood Pressure 138/93 12/27/24 16:58 Pulse Oximetry 98 12/27/24 16:58 Oxygen Delivery Me thod Room Air 12/27/24 16:58 MDM - SOB/Dyspnea Medical Decision Making Patient presents here with atrial flutter has a long history of atrial flutter along with some hypertension. She has had no chest pain here no signs of ACS no signs of pulmonary emboli. Initial troponin and labs. Initial EKG here showed atrial flutter heart rate [address] elevation QRS 111 QTc 425. Heart rates improved to the 70s here after 10 mg of Cardizem I did speak to her matte cutter Dr. Smith who recommended stopping her metoprolol and switching her to Cardizem 30 mg 3 times daily. I did go over all these findings with her she is to follow-up with Dr. Smith and return if worsening she understands agrees to plan showed no significant abnormalities I did review her chest x-ray and interpret with no acute abnormalities Medical Records I reviewed the patient's medical records. Lab Data I reviewed the patient's lab results. 12/27/24 15:43 12/27/24 15:43 Labs/Radiology: Radiology Impressions Chest X-Ray 12/27/24 16:04 IMPRESSION: 1. No acute cardiopulmonary findings radiographically. 2. Mild cardiomegaly. Laboratory Results WBC 4.48 10^3/uL (3.29-11.43) 12/27/24 15:43 RBC 4.20 10^6/uL (3.85-5.65) 12/27/24 15:43 Hgb 13.00 g/dL (11.27-16.99) 12/27/24 15:43 Hct 40.4 % (36-47) 12/27/24 15:43 MCV 96.2 fl (85-98) 12/27/24 15:43 MCH 31.0 pg (27-33) 12/27/24 15:43 MCHC 32.2 g/dL (30-55) 12/27/24 15:43 RDW 13.7 % (12.1-15.1) 12/27/24 15:43 Plt Count 215 10^3/cmm (157-399) 12/27/24 15:43 MPV 9.3 fL (7.4-10.4) 12/27/24 15:43 Neut % (Auto) 45.6 % 12/27/24 15:43 Lymph % (Auto) 31.7 % 12/27/24 15:43 George % (Auto) 12.9 % 12/27/24 15:43 Eos % (Auto) 8.7 % 12/27/24 15:43 Baso % (Auto) 0.9 % 12/27/24 15:43 Neut # (Auto) 2.04 10^3/uL (1.8-7.7) 12/27/24 15:43 Lymph # (Auto) 1.4 10^3/uL (0.8-4.8) 12/27/24 15:43 George # (Auto) 0.6 10^3/uL (0.2-0.9) 12/27/24 15:43 Eos # (Auto) 0.4 10^3/uL (0.0-0.8) 12/27/24 15:43 Baso # (Auto) 0.0 10^3/uL (0.0-0.1) 12/27/24 15:43 Nucleated RBC % (auto) 0 % 12/27/24 15:43 Nucleated RBCs # 0.0 /100WBC 12/27/24 15:43 PT 16.30 SECONDS (12.1-14.9) H 12/27/24 15:43 INR 1.22 (0.8-1.2) H 12/27/24 15:43 Sodium 141 mmol/L (136-145) 12/27/24 15:43 Potassium 4.5 mmol/L (3.5-5.1) 12/27/24 15:43 Chloride 105 mmol/L (98-107) 12/27/24 15:43 Carbon Dioxide 25 mmol/L (22-29) 12/27/24 15:43 Anion Gap 15.5 (5-19) 12/27/24 15:43 BUN 16 mg/dL (8-23) 12/27/24 15:43 Creatinine 0.9 mg/dL (0.5-0.9) 12/27/24 15:43 GFR Calculation Not Reportable 12/27/24 15:43 Glucose 127 mg/dL (65-115) H 12/27/24 15:43 Calculated Osmolality 295 mOsm/kg (285-295) 12/27/24 15:43 Calcium 9.1 mg/dL (8.5-10.5) 12/27/24 15:43 Total Bilirubin 0.3 mg/dL (0.15-1.2) 12/27/24 15:43 AST 19 U/L (0-32) 12/27/24 15:43 ALT 18 U/L (0-33) 12/27/24 15:43 Alkaline Phosphatase 68 U/L (35-105) 12/27/24 15:43 Troponin T Baseline 8 ng/L (0-10) 12/27/24 15:43 Total Protein 6.8 g/dL (6.6-8.7) 12/27/24 15:43 Albumin 4.1 g/dL (3.5-5.2) 12/27/24 15:43 Globulin 2.7 g/dL (1.3-4.6) 12/27/24 15:43 All radiology interpretation(s) finalized by discharge EKG Data EKG 1: I personally reviewed and interpreted this EKG as follows: EKG Interpretation Date: 12/27/24 EKG interpretation time: 15:10 Interpretation: atrial flutter hr [address] elevation qrs 111 qtc 425 Discharge Plan Discharge Patient Disposition: Home Clinical Impression: Atrial flutter with rapid ventricular response Condition: Stable Prescriptions: New diltiazem HCl [Cardizem] 30 mg tablet 30 mg PO Q8H Qty: 90 0RF Discontinued metoprolol tartrate 25 mg tablet 12.5 mg PO BID Qty: 30 5RF No Action trazodone 50 mg tablet 50 mg PO BEDTIME levothyroxine 50 mcg capsule 50 mcg PO DAILY lisinopril 40 mg tablet 40 mg PO BEDTIME Qty: 90 3RF (DME) orthopedic custom inserts See Rx Instructions .Route .MEDSUPPLY Qty: 1 0RF Rx Instructions: As directed Pacerone 200 mg tablet 200 mg PO DAILY Qty: 90 2RF dabigatran etexilate [Pradaxa] 150 mg capsule 150 mg PO BID Qty: 180 3RF Benadryl 25 mg Capsule 25 mg PO BEDTIME Discharge Orders: Discharge ED (Routine); Ordered 12/27/24 Ordered By: Michele Huffman Referrals: Marck Smith MD [Physician, Cardiology] - 4-7 days Monika Tafoya FNP [Primary Care Provider, Nurse Practitioner] Discharge Diet: Advance as tolerated Discharge Activity: Resume usual activity Patient Instructions: Atrial Flutter (ED) Print Language: Polish Coding Level of Care Code ED Commercial Shrimping Captain for [place]
[2024-12-27 16:19] LABS: INR 1.22 (0.8-1.2); Prothrombin Time 16.30 SECONDS (12.1-14.9)
[2024-12-27 16:26] LABS: Troponin(5th) Baseline 8 ng/L (0-10)
[2024-12-27 16:32] LABS: Alanine Aminotransferase 18 U/L (0-33); Albumin Level 4.1 g/dL (3.5-5.2); Alkaline Phosphatase 68 U/L (35-105); Anion Gap 15.5 (5-19); Aspartate Amino Transferase 19 U/L (0-32); Blood Urea Nitrogen 16 mg/dL (8-23); Calcium 9.1 mg/dL (8.5-10.5); Carbon Dioxide 25 mmol/L (22-29); Chloride 105 mmol/L (98-107); Globulin 2.7 g/dL (1.3-4.6); Glucose 127 mg/dL (65-115); Osmolality Calculated 295 mOsm/kg (285-295); Potassium 4.5 mmol/L (3.5-5.1); Sodium 141 mmol/L (136-145); Total Protein 6.8 g/dL (6.6-8.7)
[2024-12-27] MEDS: dilTIAZem 5 mg/mL SDV 5 mL 10 MG IVP (16:55)
[2024-12-27 16:58] VITALS: BP 138/93; PULSE 75; RESP 16; O2SAT 98
[2024-12-27 17:13] VITALS: BP 129/96; PULSE 79; O2SAT 94
== END 2024-12-27 17:20 | disposition home or self-care (01) ==
PROVIDERS: Emergency Provider Emergency Medicine; PCP Nurse Practitioner Family
DX: I48.92 Unspecified atrial flutter (principal); E78.5 Hyperlipidemia, unspecified; E11.9 Type 2 diabetes mellitus without complications; I10 Essential (primary) hypertension
CPT/HCPCS: 36415; 71045; 80053; 84484; 85025; 85610; 93005; 96374; 99285; J3490